=== PATIENT | male | born 1975 | race Caucasian/White ===

== ENCOUNTER 2018-01-11 14:43 | Inpatient (IN) | payer OTHER ==
[2018-01-11] MEDS ORDERED: NA CHLORIDE 0.9% 1,000 ML ONE (15:15)
[2018-01-11] MEDS ORDERED: ONDANSETRON 4 MG/2 ML VIAL ONE (15:15)
[2018-01-11 15:42] LABS: Absolute Lymphocytes (CBC) 1.7 K/uL (0.7-4.9); Absolute Monocytes 0.2 K/uL (0.1-1.3); Absolute Neutrophil 3.5 K/uL (1.8-8.0); Basophils % 1.4 % (0-1.3); Eosinophils % 0.5 % (0-4.4); Hematocrit 41.9 % (39.6-49.0); MCH 35.4 pg (27.0-35.0); MCV 102.9 fL (80-100); MPV 8.6 fL (7.6-11.3); Monocytes % 4.4 % (3.3-12.3); RBC Red Blood Cell Count 4.07 M/uL (4.33-5.43)
[2018-01-11 15:46] LABS: Protime INR 1.3
[2018-01-11 15:54] LABS: Bicarbonate 22 mEq/L (21-31); Glucose Level 112 mg/dL (65-120); Potassium 3.2 mEq/L (3.6-5.0); Sodium Level 140 mEq/L (135-145)
[2018-01-11 16:00] LABS: ALT/SGPT 54 IU/L (10-60); AST/SGOT 171 IU/L (10-42); Albumin 3.1 g/dL (3.2-5.5); Alkaline Phosphatase 96 IU/L (42-121); BUN Blood Urea Nitrogen 9 mg/dL (6-20); Bilirubin Direct 2.2 mg/dL (0-0.2); Bilirubin Total 4.5 mg/dL (0.3-1.2); Creatine Phosphokinase 613 IU/L (22-269); Protein, Total 7.4 g/dL (6.0-8.3)
[2018-01-11 16:24] LABS: Lipase 68 U/L (22-51)
[2018-01-11 16:28] LABS: Alcohol Serum/Plasma 493 mg/dl
[2018-01-11 16:45] LABS: Blood Morphology Comment NOT SEEN (NOT SEEN); Platelet Estimate DECR; Urine White Blood Cell Casts OK
--- NOTE | 2018-01-11 17:15 | RAD REPORT ---
EXAM DESCRIPTION: CT - Head Brain Wo Cont - 01/11/2018 5:04 pm CLINICAL HISTORY: CONFUSED COMPARISON: None. TECHNIQUE: Axial 5 mm thick images of the head were obtained without IV contrast. All CT scans are performed using dose optimization technique as appropriate and may include automated exposure control or mA/KV adjustment according to patient size. FINDINGS: No intracranial hemorrhage, mass, edema or shift of mid-line structures. No acute cortical based infarction. Patient does show atrophy and some chronic ischemic changes that are greater than typically seen for a patient this age. Exam has motion degradation limitation. No abnormal extra-axia l fluid collections. Ventricles are normal. Mastoid air cells and visualized portions of the paranasal sinuses are clear. No acute bony findings. IMPRESSION: No hemorrhage and no acute cortical based infarction confirmed. Patient does have some atrophy chronic ischemic change greater than typically seen for age. Decreased attenuation in the left frontal lobe is believed to be from motion. If the patient has foca l neurologic findings and is able to tolerate the examination, MR imaging could be performed.
[2018-01-11] MEDS ORDERED: LORAZEPAM 1 MG TABLET PO PRN (17:31)
[2018-01-11] MEDS ORDERED: FLUMAZENIL 0.1 MG/ML (5 mL VIAL) IV PRN (17:31)
[2018-01-11] MEDS ORDERED: LORazepam 2 MG/ML VIAL IV PRN (17:31)
[2018-01-11] MEDS ORDERED: HALOPERIDOL LACT 5 MG/ML INJ IM PRN (17:31)
--- NOTE | 2018-01-11 17:35 | ER ---
Nurse's Notes [facility] Name: Viraj Barcenas II Age: 42 yrs Sex: Male : 1975 Arrival Date: 01/11/2018 Time: 14:57 Bed 24 Private MD: Diagnosis: Alcoholic liver disease;Hypokalemia;Hypocalcemia;Alcohol abuse with intoxication, unspecified Presentation: 01/11 14:57 Presenting complaint: Patient states: EMS stated spouse called them because pt has been ed1 in bed and will not get up for over 1 month, bloody emesis also reported. Lumps on testicals that started some months ago, has not seen a doctor about that. Pt states has had chest pain for 9 days. EMS notes sclera yellowing. Triage done by Angel Huerta RN. Transition of care: patient was not received from another setting of care. Onset of symptoms is unknown. Initial Sepsis Screen: Does the patient meet any 2 criteria? No. Patient's initial sepsis screen is negative. Does the patient have a suspected source of infection? No. Patient's initial sepsis screen is negative. Care prior to arrival: Medication(s) given: Normal saline infusion, 500 mL, IV initiated. 18 GA, in the right antecubital area. 14:57 Method Of Arrival: EMS: [facility] ed1 15:38 Presenting complaint:. mb3 15:43 Presenting complaint: Patient states: Pt states feels terrrible, chest hurting at 5 on mb3 0 to 10 scale, stomach hurting at 10 on 0 to 10 scale. diffuse pain and pt does not appear to be in severe distress. 15:43 Acuity: BRIANA 3 mb3 Triage Assessment: 15:02 General: Appears uncomfortable, well groomed, Behavior is cooperative, voice slurred, ed1 acts intoxicated. Smells of alcohol, Reports fatigue for >3 days. Pain: Complains of pain in chest Pain does not radiate. EENT: Sclera/Cornea yellowing. Neuro: Level of Consciousness is obeys commands, lethargic, Oriented to person, place, time, situation. Cardiovascular: Reports chest pain, Heart tones S1 S2 present Capillary refill < 3 seconds Pulses are all present. Rhythm is regular Chest pain began over 9 days ago. Respiratory: No deficits noted. Airway is patent Respiratory effort is even, unlabored, Respiratory pattern is regular, symmetrical, Breath sounds are clear. GI: Abdomen is round noted to have ascites, denies vomiting, spouse states has been vomiting blood. : No signs and/or symptoms were reported regarding the genitourinary system. Derm: Skin is yellow. Musculoskeletal: Reports weakness in Generalized Weakness. Historical: - Allergies: 15:00 No Known Allergies; ed1 - Home Meds: 15:00 None [Active]; ed1 - PMHx: 15:00 None; ed1 - Immunization history:: Adult Immunizations unknown. - Social history:: Smoking status: Patient/guardian denies using tobacco, never smoked, Patient uses alcohol, on a daily basis. - Family history:: not pertinent. - Hospitalizations: : No recent hospitalization is reported. Screenin:10 Abuse screen: Denies threats or abuse. Nutritional screening: No deficits noted. ed1 Tuberculosis screening: Never had TB. Possible symptoms: recent bloody sputum, Risk factors: None. Fall Risk IV access (20 points). Total Garcia Fall Scale indicates No Risk (0-24 pts). Assessment: 15:10 General: see triage assessment. ed1 15:41 General: I agree with above assessment. . Pain: Complains of pain in chest, left upper mb3 quadrant and left lower quadrant Pain does not radiate. Pain currently is 5 out of 10 on a pain scale. Vital Signs: 15:08 BP 130 / 91; Pulse 86; Resp 14; Temp 97.9; Pulse Ox 95% on R/A; Weight 99.79 kg; Height ed1 5 ft. 9 in. (175.26 cm); Pain 5/10; 16:39 BP 118 / 83; Pulse 87; Resp 16; Pulse Ox 99% on 2 lpm NC; mb3 19:05 BP 119 / 77; Pulse 96; Resp 16; Pulse Ox 97% on R/A; Pain 2/10; mb3 15:08 Body Mass Index 32.49 (99.79 kg, 175.26 cm) ed1 ED Course: 14:57 Patient arrived in ED. ed1 14:57 Rosas Fox MD is Attending Physician. rn 15:00 Triage completed. ed1 15:10 Arm band placed on right wrist. ed1 15:37 Angel Huerta RN is Primary Nurse. mb3 15:44 Allergy band placed. Placed in gown. Bed in low position. Call light in reach. Side mb3 rails up X 1. quality assurance monitor body on. Pulse ox on. NIBP on. 16:30 Notified ED physician of a critical lab result(s). Calcium 6.7. ed1 16:[address] via stretcher. mb3 17:05 CT Head Brain wo Cont In Process Unspecified. EDMS 17:[address] from [address]. mb3 17:33 Arabella Polanco MD is Hospitalizing Provider. rn 19:46 No provider procedures requiring assistance completed. Patient admitted, IV remains in mb3 place. Administered Medications: 15:22 Drug: Zofran 4 mg Route: IVP; Site: right antecubital; mb3 17:07 Follow up: Response: No adverse reaction; Nausea is decreased mb3 15:22 Drug: NS 0.9% 1000 ml Route: IV; Rate: 1000 ml; Site: right antecubital; mb3 17:30 Drug: Calcium Gluconate 2 grams Route: IVPB; Infused Over: 120 mins; Site: right mb3 antecubital; Point of Care Testing: Guaiac: 16:04 Stool Guaiac: Negative; Stool Hemoccult Control: Pass; rn Outcome: 17:34 Decision to Hospitalize by Provider. rn 19:46 Admitted to Tele accompanied by tech, via stretcher, room 403, with chart, Report mb3 called to Kat Rae RN 19:46 Condition: stable 19:46 Instructed on the need for admit. 19:49 Patient left the ED. mb3 Signatures: Dispatcher [employer] EDMS Rosas Fox MD MD rn Riggs, Erika, RESIDENTIAL SUBCONTRACTOR RESIDENTIAL SUBCONTRACTOR ed1 Angel Huerta, RN RN mb3 Corrections: (The following items were deleted from the chart) 15:40 14:57 Presenting complaint: Patient states: EMS stated spouse called them because pt kendrick has been in bed and will not get up for over 1 month, bloody emesis also reported. Lumps on testicals that started some months ago, has not seen a doctor about that. Pt states has had chest pain for 9 days. EMS notes sclera yellowing. ed1 15:40 14:57 Transition of care: patient was not received from another setting of care. ed1 mb3 15:44 14:57 Acuity: BRIANA 3 ed1 mb3
--- NOTE | 2018-01-11 17:35 | EDPHYS ---
Physician Documentation [facility] Name: Viraj Barcenas II Age: 42 yrs Sex: Male : 1975 Arrival Date: 01/11/2018 Time: 14:57 Bed 24 Private MD: ED Physician Rosas Fox HPI: 01/11 16:13 This 42 yrs old Male presents to ER via EMS with complaints of vomiting blood rn vs nosebleeds. 16:13 EMS not sure if nosebleeds or vomiting blood, + alcoholic, daily drinker, patient rn denies vomiting blood or dark stool, states laying in bed for weeks, drinks daily, has nosebleeds, and generalized weakness. . Onset: The symptoms/episode began/occurred at an unknown time. Severity of symptoms: At their worst the symptoms were moderate in the emergency department the symptoms have improved. The patient has not experienced similar symptoms in the past. The patient has not recently seen a physician. Historical: - Allergies: 15:00 No Known Allergies; ed1 - Home Meds: 15:00 None [Active]; ed1 - PMHx: 15:00 None; ed1 - Immunization history:: Adult Immunizations unknown. - Social history:: Smoking status: Patient/guardian denies using tobacco, never smoked, Patient uses alcohol, on a daily basis. - Family history:: not pertinent. - Hospitalizations: : No recent hospitalization is reported. ROS: 16:13 Constitutional: Negative for fever, chills, and weight loss, Eyes: Negative for injury, rn pain, redness, and discharge, Neck: Negative for injury, pain, and swelling, Cardiovascular: Negative for chest pain, palpitations, and edema, Respiratory: Negative for shortness of breath, cough, wheezing, and pleuritic chest pain, Abdomen/GI: Negative for abdominal pain, diarrhea, and constipation, Back: Negative for injury and pain, MS/Extremity: Negative for injury and deformity, Skin: Negative for injury, rash, and discoloration, Neuro: + generalized weakness, no headache Exam: 16:13 Constitutional: This is a well developed patient, appears intoxicated, slurred speech, rn joking Head/Face: Normocephalic, atraumatic. Eyes: + scleral icterus ENT: dry MM Neck: Trachea midline, no thyromegaly or masses palpated, and no cervical lymphadenopathy. Supple, full range of motion without nuchal rigidity, or vertebral point tenderness. No Meningismus. Cardiovascular: Regular rate and rhythm with a normal S1 and S2. No gallops, murmurs, or rubs. Normal PMI, no JVD. No pulse deficits. Respiratory: Lungs have equal breath sounds bilaterally, clear to auscultation and percussion. No rales, rhonchi or wheezes noted. No increased work of breathing, no retractions or nasal flaring. Abdomen/GI: Soft, non-tender, with normal bowel sounds. No distension or tympany. No guarding or rebound. No evidence of tenderness throughout. MS/ Extremity: Pulses equal, no cyanosis. Neurovascular intact. Full, normal range of motion. Equal circumference. Neuro: Awake and alert, GCS 15, oriented to person, place, time, and situation. Cranial nerves II-XII grossly intact. Motor strength 5/5 in all extremities. Sensory grossly intact. Vital Signs: 15:08 BP 130 / 91; Pulse 86; Resp 14; Temp 97.9; Pulse Ox 95% on R/A; Weight 99.79 kg; Height ed1 5 ft. 9 in. (175.26 cm); Pain 5/10; 16:39 BP 118 / 83; Pulse 87; Resp 16; Pulse Ox 99% on 2 lpm NC; mb3 19:05 BP 119 / 77; Pulse 96; Resp 16; Pulse Ox 97% on R/A; Pain 2/10; mb3 15:08 Body Mass Index 32.49 (99.79 kg, 175.26 cm) ed1 MDM: 14:57 Patient medically screened. rn 17:32 Differential Diagnosis liver failure, cirrhosis, alcoholic hepatitis. Data reviewed: rn vital signs, nurses notes, lab test result(s), EKG, radiologic studies, CT scan, and as a result, I will admit patient. Counseling: I had a detailed discussion with the patient and/or guardian regarding: the historical points, exam findings, and any diagnostic results supporting the discharge/admit diagnosis, lab results, radiology results, the need for further work-up and treatment in the hospital. Admission orders: after a detailed discussion of the patient's condition and case, the admit orders are written by me. ED course: Admitted to Dr. Polanco for alcoholic liver disease, hypokalemia, hypocalcemia. 01/11 15:01 Order name: Basic Metabolic Panel rn 01/11 15:01 Order name: CBC with Diff; Complete Time: 16:57 rn 01/11 15:01 Order name: Creatinine for Radiology; Complete Time: 16:04 rn 01/11 15:01 Order name: Hepatic Function rn 01/11 15:01 Order name: Lipase; Complete Time: 16:41 rn 01/11 15:01 Order name: Urine Microscopic Only rn 01/11 15:01 Order name: CK; Complete Time: 16:41 rn 01/11 15:01 Order name: Hepatitis Panel 01/11 15:01 Order name: PT-INR; Complete Time: 16:04 rn 01/11 15:01 Order name: Ptt, Activated; Complete Time: 16:04 01/11 15:01 Order name: Type And Screen; Complete Time: 16:41 rn 01/11 15:01 Order name: ETOH Level; Complete Time: 16:41 01/11 15:02 Order name: Basic Metabolic Panel; Complete Time: 16:41 EDMS 01/11 15:02 Order name: Liver (Hepatic) Function; Complete Time: 16:41 EDMS 01/11 15:01 Order name: IV Saline Lock; Complete Time: 15:12 01/11 15:01 Order name: Labs collected and sent; Complete Time: 15:38 01/11 15:01 Order name: Urine Dipstick-Ancillary (obtain specimen) 01/11 16:06 Order name: CBC Smear Scan; Complete Time: 16:57 EDMS 01/11 16:16 Order name: CT Head Brain wo Cont; Complete Time: 17:18 rn 01/11 19:26 Order name: US; Complete Time: 19:26 EDMS Administered Medications: 15:22 Drug: Zofran 4 mg Route: IVP; Site: right antecubital; mb3 17:07 Follow up: Response: No adverse reaction; Nausea is decreased mb3 15:22 Drug: NS 0.9% 1000 ml Route: IV; Rate: 1000 ml; Site: right antecubital; mb3 17:30 Drug: Calcium Gluconate 2 grams Route: IVPB; Infused Over: 120 mins; Site: right mb3 antecubital; Point of Care Testing: Guaiac: 16:04 Stool Guaiac: Negative; Stool Hemoccult Control: Pass; rn Disposition: 01/11/18 17:34 Hospitalization ordered by Arabella Polanco for Inpatient Admission. Preliminary diagnosis are Alcoholic liver disease, Hypokalemia, Hypocalcemia, Alcohol abuse with intoxication, unspecified. - Bed requested for Telemetry/MedSurg (Inpatient). - Status is Inpatient Admission. mb3 - Condition is Stable. - Problem is an ongoing problem. - Symptoms have improved. UTI on Admission? No Signatures: Dispatcher [employer] EDMS YenniferJudit guevara Rosas Wren MD MD rn Riggs, Erika, PLUMBER CUB PLUMBER CUB ed1 Angel Huerta, RN RN mb3 Corrections: (The following items were deleted from the chart) 18:01 17:34 Hospitalization Ordered by Arabella Polanco MD for Inpatient Admission. Preliminary bd diagnosis is Alcoholic liver disease; Hypokalemia; Hypocalcemia; Alcohol abuse with intoxication, unspecified. Bed requested for Telemetry/MedSurg (Inpatient). Status is Inpatient Admission. Condition is Stable. Problem is an ongoing problem. Symptoms have improved. UTI on Admission? No. rn 19:49 18:01 01/11/2018 17:34 Hospitalization Ordered by Arabella Polanco MD for Inpatient mb3 Admission. Preliminary diagnosis is Alcoholic liver disease; Hypokalemia; Hypocalcemia; Alcohol abuse with intoxication, unspecified. Bed requested for Telemetry/MedSurg (Inpatient). Status is Inpatient Admission. Condition is Stable. Problem is an ongoing problem. Symptoms have improved. UTI on Admission? No. bd
[2018-01-11] MEDS: LORAZEPAM 1 MG TABLET PO SCH ×2 (18:00→22:00)
[2018-01-11] MEDS ORDERED: Calcium Gluconate 9.3 mEq (=2gm)/NS 100 mL IVPB IV ONE ×2 (18:00)
--- NOTE | 2018-01-11 19:25 | RAD REPORT ---
EXAM DESCRIPTION: US - Scrotum Testicles - 01/11/2018 6:52 pm CLINICAL HISTORY: Pain. COMPARISON: None. FINDINGS: The right testicle 3.8 x 2.9 x 1.8 cm. No intratesticular masses or evidence of testicular torsion. The left testicle 4.0 x 2.9 x 1.6 cm. No intratesticular masses or evidence of testicular torsion. Both epididymides are normal in size and appearance. Cystic lesion medial to the left epididymis is noted measuring 24 x 24 x 11 mm likely represents a sp ermatocele or epididymal cyst. IMPRESSION: No testicular mass or torsion findings. 24 mm left-sided spermatocele versus epididymal cyst.
[2018-01-11] MEDS: PANTOPRAZOLE 40MG TABLET PO SCH (22:23)
[2018-01-11] MEDS: FOLIC ACID 1 MG, MULTIVITAMINS INJ 10 ML, THIAMINE HCL 100 MG in NA CHLORIDE 0.9% 1,000 ML IV SCH (22:24)
[2018-01-12] MEDS: ONDANSETRON 4 MG/2 ML VIAL IV PRN ×4 (01:03→17:52)
[2018-01-12 01:16] VITALS: BMI 28.0
[2018-01-12] MEDS: LORAZEPAM 1 MG TABLET PO SCH ×7 (02:00→21:01)
[2018-01-12 04:52] LABS: Absolute Lymphocytes (CBC) 0.9 K/uL (0.7-4.9); Absolute Monocytes 0.2 K/uL (0.1-1.3); Absolute Neutrophil 3.7 K/uL (1.8-8.0); Eosinophils % 0.1 % (0-4.4); Hematocrit 35.6 % (39.6-49.0); Lymphocytes % 17.9 % (15.3-44.8); MCH 36.2 pg (27.0-35.0); MCV 102.9 fL (80-100); MPV 9.8 fL (7.6-11.3); RBC Red Blood Cell Count 3.46 M/uL (4.33-5.43)
--- NOTE | 2018-01-12 05:08 | HP ---
Date of Admission: 01/11/2018 Primary Care Physician: None. Consultants: Dr. West with GI. Chief Complaint: Epistaxis, generalized weakness. Code Status: Full. History Of Present Illness: The patient is a 42-year-old male with no significant past medical histo ry other than chronic alcohol dependence who drinks 6 ounces of vodka daily for several years, who wa s in his usual state of health until 1 month prior to admission when the patient had upper respirator y tract infection which was going around in his house with his and son sick with similar issues. His and son recovered. However, patient continued to have generalized weakness, fatigue, unab le to get out of bed. The patient denies any fevers, chills, cough, sputum production, however, has been having some episodes of epistaxis over the past week, however, today was worsened with 3 towels being soaked with blood which was bright red. The patient states it is worsened with any sort of act ivity including blowing his nose. Denies any trauma or any falls. The patient was brought in via EM S due to his worsening condition. When seen in the ER, the patient is clearly intoxicated, however, able to cooperate with history taking and physical examination. Upon arrival, his vital signs were s table. He was afebrile. His lab work revealed low potassium and calcium level. Platelet count was 38. H and H were 14 and 41. Alcohol level is 493. The patient was then referred for admission. Past Medical History: None. Past Surgical History: None. Allergies: TO CEPHALOSPORINS. Medications: None. Family History: Father and grandfather both of complications of liver cancer and cirrhosis due to alcohol. Social History: The patient is , has a son, is on Medicaid. Independent in his activities of daily living. Drinks 6 ounces of vodka daily. No other alcoholic drinks including beer. Does not smoke. Has smoked weed in the recent past. No illicit IV drug use. Review of Systems: An 11-point system reviewed, negative except as per HPI. Physical Examination: Vital Signs: Blood pressure 130/91, pulse 86, respirations 14, temperature 97.9, O2 95% on room air. General: Awake, alert, oriented x3. The patient is intoxicated, appears older than stated age. HEENT: Normocephalic, atraumatic. PERRLA. EOMI. Moist mucous membranes. Oropharynx is clear. Po or dentition. Conjunctiva is anicteric. Nares have some dried blood. No swollen turbinates. Neck: Supple. No JVD. Trachea midline. CV: S1, S2. Regular rate and rhythm. No murmurs. Peripheral pulses are present bilaterally. Respiratory: Clear to auscultation bilaterally. No wheezing. No stridor. No use of accessory musc les. Gastrointestinal: Abdomen is soft, nontender, nondistended. Positive bowel sounds. No guarding or rigidity. No palpable masses. : Circumcised penis, descended testicles. No masses felt. No hydrocele. Extremities: No clubbing, cyanosis, or edema. No calf tenderness. Neuro: Cranial nerves 2 through 12 intact grossly. No focal neurological deficit. Speech is normal . Strength is 5/5 bilateral upper and lower extremities. Sensation intact to light touch. Skin: No rashes. Normal skin turgor. Psych: Mood is dysphoric. Affect is congruent with mood. Insight and judgment are poor. Laboratory Data: Hep panel pending. Alcohol level 493. UA pending. Sodium 140, potassium 3.2, chl oride 105, CO2 22, BUN 9, creatinine 0.55, glucose 112, calcium 6.7, total bilirubin 4.5, direct bili colindres 2.2, AST 171, ALT 54, alkaline phosphatase 96. CK level 613. Total protein 7.4, albumin 3.1, lipase 68. INR 1.3. WBC 5.5, H and H 14.4/41.9, MCV 102.9, platelets 38, neutrophils 62%. CT scan of the head shows no hemorrhage. No acute cortical based infarction confirmed. The patient does hav e some atrophy, chronic ischemic change greater than typically seen for age. Assessment: A 42-year-old male with: 1.Epistaxis, likely secondary to alcohol-related coagulopathy. INR is elevated to 1.3, platelets ar e low at 38. We will transfuse unit of platelets. We will monitor for any further signs of bleeding . No trauma or falls. 2.Acute alcohol intoxication. Alcohol level is 493. We will place on CIWA protocol and alcohol det ox. Use Ativan p.r.n. 3.Alcohol dependence. The patient has been counseled extensively. He understands that he likely al ready has some liver cirrhosis and may end up like his father and grandfather and from complicati ons of liver cirrhosis and cancer. He plans to quit, not interested in rehab or Alcoholics Anonymous at this time. We will place on Ativan detox protocol. Monitor for withdrawals. May need to be tra nsferred to ICU depending on his CIWA scale. 4.Hypokalemia. We will replace and monitor. 5.Hypocalcemia. We will replace and monitor. 6.Elevated total bilirubin. 7.Elevated liver enzymes, likely secondary to complications of liver from alcohol. 8.Elevated lipase, likely has chronic alcoholic pancreatitis. 9.Thrombocytopenia. 10.Gastrointestinal and deep venous thrombosis prophylaxis, PPI and SCDs. Plan: Admit patient to Med-Surg, place as inpatient GI consultation. The patient also complained of testicular lumps, mass. We will obtain testicular ultrasound. May benefit from abdominal ultrasoun d to obtain liver imaging. Overall has a poor prognosis. /YOEL Voice ID: [id number]
[2018-01-12 05:21] LABS: ALT/SGPT 54 IU/L (10-60); AST/SGOT 170 IU/L (10-42); Albumin 3.3 g/dL (3.2-5.5); Alkaline Phosphatase 94 IU/L (42-121); BUN Blood Urea Nitrogen 12 mg/dL (6-20); Bicarbonate 25 mEq/L (21-31); Creatine Phosphokinase 692 IU/L (22-269); Glucose Level 137 mg/dL (65-120); Magnesium 1.7 mg/dL (1.8-2.5); Phosphorus 2.4 mg/dL (2.5-4.3); Potassium 3.9 mEq/L (3.6-5.0); Protein, Total 7.7 g/dL (6.0-8.3); Sodium Level 139 mEq/L (135-145)
[2018-01-12 05:24] LABS: Bilirubin Total 5.7 mg/dL (0.3-1.2)
[2018-01-12] MEDS ORDERED: POTASSIUM 25 MEQ EFFERV TAB PO ONE (06:21)
[2018-01-12] MEDS ORDERED: MAGNESIUM SULFATE 1 gm IVPB 1 GM/100 ML BAG IV ONE (06:22)
[2018-01-12] MEDS: PANTOPRAZOLE 40MG TABLET PO SCH ×2 (09:09→21:01)
[2018-01-12] MEDS: FOLIC ACID 1 MG, MULTIVITAMINS INJ 10 ML, THIAMINE HCL 100 MG in NA CHLORIDE 0.9% 1,000 ML IV SCH (09:10)
[2018-01-12 09:53] LABS: Urine Bacteria <20 /HPF (NONE SEEN); Urine Culture Reflex Order NOT NEEDED; Urine Mucus 1+ /HPF (NONE SEEN); Urine RBC 20-50 /HPF (NONE SEEN)
--- NOTE | 2018-01-12 14:25 | PN ---
Date of Progress Note: 01/12/2018 Subjective: The patient is seen and examined. Chart reviewed and case discussed with RN. Family at the bedside. Treatment plan explained. All questions answered. The patient denies any acute delir ium tremens. Having some withdrawal signs. Review of Systems: Negative except as above. Medications: Reviewed. Physical Examination: Vital Signs: Temperature 98.8, T-max 100.6, heart rate 97, blood pressure 116/71, respirations 18, O 2 91% on room air. General: Awake, alert, oriented x3. No acute distress. Appears older than stated age. CV: S1, S2. No murmurs. Regular rate and rhythm. Peripheral pulses present. Respiratory: Moving air well bilaterally. No wheezing. Gastrointestinal: Abdomen is soft, nontender, nondistended. Positive bowel sounds. Extremities: No clubbing, cyanosis, or edema. Neurologic: Nonfocal. Laboratory Data: Sodium 139, potassium 3.9, chloride 103, CO2 25, BUN 12, creatinine 0.56, glucose 1 37, calcium 7.9, phosphorus 2.4, magnesium 1.7, total bilirubin 5.7. AST 178, ALT 54. CK 692. WBC 4.8, H and H 12.5 and 35.6, platelets 32, MCV 102.9, neutrophils 76%. Hepatitis panel pending. Ultr asound of the scrotum shows no testicular mass or torsion findings, 24 mm left-sided spermatocele stefani poncho epididymal cyst. Assessment And Plan: A 42-year-old male with: 1.Acute alcohol intoxication. Alcohol level was 493. Currently on detox protocol with Ativan, and monitor with CIWA protocol. Social work to provide the patient with rehab and AA information. I hav e talked to the patient and the patient himself is interested in quitting at this time. 2.Epistaxis secondary to above, resolved. 3.Thrombocytopenia, likely related to alcoholic liver cirrhosis. We will obtain imaging to confirm. We will continue to monitor. No active bleeding at this time. 4.Alcohol dependence. The patient was counseled. Continue with detox. 5.Hypokalemia, replaced. We will continue to monitor. 6.Hypocalcemia, replaced, improving. 7.Left spermatocele. We will monitor. 8.Elevated liver enzymes and total bilirubin, likely related to alcoholic liver disease. 9.Chronic alcoholic pancreatitis. 10.Gastrointestinal and deep venous thrombosis prophylaxis, PPI and SCDs. Plan: Obtain liver imaging to assess level of cirrhosis. Continue with detox. Follow up with GI re commendations. /YOEL Voice ID: [id number] Report ID: [id number]
[2018-01-12] MEDS: ACETAMINOPHEN 500 MG TAB PO PRN (21:01)
--- NOTE | 2018-01-12 21:31 | CON ---
Reason For Consultation: Alcoholic liver disease. History Of Present Illness: Mr. Barcenas is a 42-year-old gentleman, who comes to the hospital once ag ain with epistaxis and generalized weakness. However at this time, he is totally confused, cannot gi ve any history. He is jittery and he is restless. He appears to be undergoing an alcohol withdrawal . He has a heavy history of alcohol withdrawal of hard liquor. He apparently drank vodka at this ti me. From the nurses I cannot get any hematemesis, melena, hematochezia. The patient does not admit or refused to say anything. Past Medical History: As elaborated above. Multiple admissions due to alcohol intoxication. Past Surgical History: Unknown. Family History: Unknown. Social History: Other than above, unknown. Psych History: Unknown. Allergies: REVIEWED IN THE CHART. Medications: Reviewed in the chart. Review of Systems: Impossible to obtain due to patient's condition. Physical Examination: General: Young male at this time appears to be jittery; however, no in acute distress. Hemodynamic respiratory profile within normal range. HEENT: Atraumatic, normocephalic. Some amount of icterus. Oropharyngeally he does not cooperate. Neck: Supple. No lymphadenopathy. Chest good air exchange. However does not cooperate. Cardiac: S1, S2 is accentuated. Abdomen: Soft, nontender, nondistended. No tenderness appears to be there. Bowel sounds are presen t. Extremities: Upper and lower extremities are normal, symmetrical. Neurologic: He is jittery; however, does not cooperate to any other examination. Diagnostic Data: Hemoglobin and hematocrit are 14 and 41, platelet count is low. Chemistry profile shows bilirubin is 4.5. AST is predominantly elevated. CK is elevated. Albumin 3.1. Impression, Plan, And Recommendation: Mr. Barcenas is a 42-year-old gentleman with alcoholic dependenc e and alcohol withdrawal at this time. He probably has acute alcoholic hepatitis. Whether he has he patic encephalopathy or not is impossible to obtain at this time. He is to continue with conservative seizure precaution, alcohol withdrawal preparation. His treatmen t will be: 1.Giving up alcohol. 2.Giving up alcohol. 3.Giving up alcohol. Then comes rest of the management. However, patient is not in a state of mind where we can discuss with him regarding his alcohol withdr awal and other management. This should be discussed in appropriate time. GEORGETTE/MODL Voice ID: [id number] Report ID: [id number]
[2018-01-13] MEDS: LORAZEPAM 1 MG TABLET PO SCH ×3 (01:39→10:24)
[2018-01-13 03:14] LABS: HBsAG Nonreactive (Nonreactive); Hepatitis A IgM Antibody Nonreactive
[2018-01-13] MEDS: ONDANSETRON 4 MG/2 ML VIAL IV PRN ×2 (05:49→10:24)
[2018-01-13 06:24] LABS: Absolute Monocytes 0.3 K/uL (0.1-1.3); Absolute Neutrophil 2.5 K/uL (1.8-8.0); Basophils % 1.3 % (0-1.3); Eosinophils % 1.2 % (0-4.4); Hematocrit 34.5 % (39.6-49.0); Lymphocytes % 25.6 % (15.3-44.8); MCH 36.6 pg (27.0-35.0); MCV 102.8 fL (80-100); MPV 8.5 fL (7.6-11.3); Monocytes % 7.1 % (3.3-12.3); RBC Red Blood Cell Count 3.35 M/uL (4.33-5.43)
[2018-01-13 07:02] LABS: ALT/SGPT 54 IU/L (10-60); AST/SGOT 186 IU/L (10-42); Alkaline Phosphatase 91 IU/L (42-121); BUN Blood Urea Nitrogen 8 mg/dL (6-20); Bicarbonate 24 mEq/L (21-31); Creatine Phosphokinase 965 IU/L (22-269); Glucose Level 87 mg/dL (65-120); Magnesium 1.5 mg/dL (1.8-2.5); Phosphorus 2.2 mg/dL (2.5-4.3); Potassium 3.7 mEq/L (3.6-5.0); Sodium Level 134 mEq/L (135-145)
[2018-01-13] MEDS ORDERED: MAGNESIUM SULFATE 1 gm IVPB 1 GM/100 ML BAG IV ONE (07:16)
[2018-01-13] MEDS ORDERED: POTASSIUM 25 MEQ EFFERV TAB PO ONE (07:46)
[2018-01-13] MEDS ORDERED: Magnesium Sulfate 2gm IVPB 2 G/50 ML BAG IV ONE (07:46)
[2018-01-13] MEDS: FOLIC ACID 1 MG, MULTIVITAMINS INJ 10 ML, THIAMINE HCL 100 MG in NA CHLORIDE 0.9% 1,000 ML IV SCH (08:11)
[2018-01-13] MEDS: PANTOPRAZOLE 40MG TABLET PO SCH ×2 (08:11→21:26)
[2018-01-13] MEDS: NA CHLORIDE 0.9% 1,000 ML IV SCH ×2 (08:22→15:39)
--- NOTE | 2018-01-13 09:20 | RAD REPORT ---
EXAM DESCRIPTION: US - Abdomen Exam Complete - 01/13/2018 7:46 am CLINICAL HISTORY: Abdominal pain. COMPARISON: None. FINDINGS: Diffuse fatty liver is seen. Mild nodular contour is present to the liver suggesting under lying cirrhosis. No focal liver lesions or intrahepatic biliary dilatation is seen. Gallbladder sludge is present. Common bile duct is normal in caliber measuring 5 millimeters. Both kidneys are normal in size, shape and echotexture. Small calculi likely present in both kidneys. No hydronephrosis. The spleen is mildly enlarged measuring 14 cm. The pancreas and aorta are obscured by bowel gas. IMPRESSION: Diffuse fatty liver is seen with nodular liver contour suggesting mild cirrhosis. The de gree of fatty infiltration limits sonographic penetrance. Gallbladder sludge. Bilateral nephrolithiasis without hydronephrosis. Mild splenomegaly.
[2018-01-13 12:09] LABS: MPV 10.1 fL (7.6-11.3)
[2018-01-13] MEDS: PROMETHAZINE 25 MG/ML VIAL IV PRN ×2 (12:57→21:26)
[2018-01-13 13:02] LABS: Platelet Estimate DECR
[2018-01-13] MEDS: LORazepam 2 MG/ML VIAL IV SCH ×3 (14:03→21:25)
--- NOTE | 2018-01-13 17:00 | PN ---
Date of Progress Note: 01/13/2018 Subjective: The patient is seen and examined. Chart reviewed and case discussed with RN and Dr. Jaxson dunham. The patient is still very somnolent. Had some episodes of nausea and vomiting overnight. a t the bedside. No active bleeding. Review of Systems: Negative except as above. Medications: Reviewed. Physical Examination: Vital Signs: Temperature 99.2, T-max was 100.9 at 8 p.m. yesterday, heart rate 82, blood pressure 12 9/80, respirations 16, O2 94% on room air. General: Awake, alert, arousable somewhat confused and disoriented. Appears older than stated age. CV: S1, S2. No murmurs. Regular rate and rhythm. Peripheral pulses present. Respiratory: Moving air well bilaterally. No wheezing. Gastrointestinal: Abdomen is soft, nontender, nondistended. Positive bowel sounds. Extremities: No clubbing, cyanosis, edema. Neuro: Nonfocal. HEENT: Normocephalic, atraumatic. PERRLA. EOMI. Moist mucous membranes. Conjunctiva has icterus. Psych: Mood is dysphoric. Affect is congruent with mood. Insight and judgment are poor. Laboratory Data: WBC 3.9, H and H 12.3 and 34.5, MCV 102.8, platelets 21, neutrophils 64%. Sodium 1 34, potassium 3.7, chloride 99, CO2 24, BUN 8, creatinine 0.61, glucose 87, calcium 8. Total bilirub in 7, AST 186, ALT 54, CK 965. Abdominal ultrasound shows spleen mildly enlarged at 14 cm. Diffuse fatty liver is seen with nodular liver contour suggesting mild cirrhosis. Degree of fatty infiltrati on limits sonographic penetrates. Gallbladder sludge, bilateral nephrolithiasis without hydronephros is. Mild splenomegaly. Assessment And Plan: A 42-year-old male with: 1.Acute alcoholic intoxication. Continue detox protocol with Ativan. Monitor CIWA protocol. The p atient will need to go to rehab or alcoholics anonymous upon discharge. 2.Epistaxis, resolved. 3.Acute alcoholic hepatitis. Appreciate GI input. Counseled against drinking. 4.Thrombocytopenia. The patient does have splenomegaly, likely related to alcoholic liver cirrhosis seen on abdominal ultrasound. No active bleeding at this time. We will repeat platelet levels. I spoke with Dr. Dorman with Hematology. She recommends outpatient followup. No indication for platelet transfusion at this time. 5.Alcohol dependence, counseled. Continue detox. 6.Hyponatremia. We will continue to monitor. 7.Rhabdomyolysis, acute, nontraumatic. CK level trending up. We will adjust IV fluids. 8.Hypocalcemia, improved. 9.Hypokalemia, replaced. We will continue to monitor. 10.Left spermatocele. 11.Chronic alcoholic hepatitis. 12.Gastrointestinal and deep venous thrombosis prophylaxis with PPI and SCDs. No chemical anticoagu lation due to low platelets. SA/MODL Voice ID: [id number] Report ID: [id number]
[2018-01-13] MEDS ORDERED: LORAZEPAM 1 MG TABLET PO SCH (17:35)
[2018-01-13 19:37] LABS: Urine Appearance CLEAR; Urine Blood NEGATIVE (NEG); Urine Color DK YELLOW; Urine Glucose NEGATIVE (NEG); Urine Protein NEGATIVE (NEG); Urine Specific Gravity 1.015 (1.005-1.030); Urine Urobilinogen >=8.0 mg/dL (0.2-1.0); Urine pH 7.5 (5.0-7.0)
[2018-01-13 19:42] LABS: Urine Bilirubin 1+ (NEG)
[2018-01-13 19:55] LABS: Urine Bacteria <20 /HPF (NONE SEEN); Urine RBC <5 /HPF (NONE SEEN)
[2018-01-13 19:57] LABS: Urine Culture Reflex Order NOT NEEDED
[2018-01-14] MEDS: LORazepam 2 MG/ML VIAL IV SCH ×4 (01:36→21:26)
[2018-01-14] MEDS: PROMETHAZINE 25 MG/ML VIAL IV PRN (05:07)
[2018-01-14 05:56] LABS: Absolute Lymphocytes (CBC) 0.7 K/uL (0.7-4.9); Absolute Monocytes 0.3 K/uL (0.1-1.3); Eosinophils % 1.7 % (0-4.4); Hematocrit 36.4 % (39.6-49.0); Lymphocytes % 16.3 % (15.3-44.8); MCH 36.1 pg (27.0-35.0); MCV 104.9 fL (80-100); MPV 8.5 fL (7.6-11.3); Monocytes % 8.2 % (3.3-12.3); RBC Red Blood Cell Count 3.47 M/uL (4.33-5.43)
[2018-01-14 06:49] LABS: ALT/SGPT 58 IU/L (10-60); AST/SGOT 179 IU/L (10-42); Albumin 3.2 g/dL (3.2-5.5); Alkaline Phosphatase 98 IU/L (42-121); BUN Blood Urea Nitrogen 7 mg/dL (6-20); Bicarbonate 23 mEq/L (21-31); Creatine Phosphokinase 755 IU/L (22-269); Folic Acid, (Folate) 11.9 ng/ml (>5.21); Glucose Level 116 mg/dL (65-120); Magnesium 1.7 mg/dL (1.8-2.5); Potassium 3.2 mEq/L (3.6-5.0); Protein, Total 7.6 g/dL (6.0-8.3); Sodium Level 132 mEq/L (135-145)
[2018-01-14] MEDS ORDERED: MAGNESIUM SULFATE 1 gm IVPB 1 GM/100 ML BAG IV ONE (06:51)
[2018-01-14 06:53] LABS: Bilirubin Total 9.1 mg/dL (0.3-1.2)
[2018-01-14] MEDS ORDERED: POTASSIUM 25 MEQ EFFERV TAB PO ONE ×2 (06:54→15:44)
[2018-01-14] MEDS: ONDANSETRON 4 MG/2 ML VIAL IV PRN (07:16)
[2018-01-14] MEDS: LORazepam 2 MG/ML VIAL IV PRN (07:17)
[2018-01-14] MEDS: NA CHLORIDE 0.9% 1,000 ML IV SCH ×3 (08:00→17:27)
[2018-01-14] MEDS: FOLIC ACID 1 MG, MULTIVITAMINS INJ 10 ML, THIAMINE HCL 100 MG in NA CHLORIDE 0.9% 1,000 ML IV SCH (08:46)
[2018-01-14] MEDS: PANTOPRAZOLE 40MG TABLET PO SCH ×2 (08:47→21:00)
[2018-01-14] MEDS ORDERED: LORazepam 2 MG/ML VIAL IV SCH ×2 (10:00→13:00)
--- NOTE | 2018-01-14 13:31 | PN ---
Date of Progress Note: 01/14/2018 Subjective: The patient seen and examined, chart reviewed, and case discussed with RN. The patient had some nausea, vomiting yesterday that has improved. The patient is somewhat confused and hallucin ating per . No active bleeding at this time. Review of Systems: Negative except as above. Medications: Reviewed. Physical Examination: Vital Signs: Temperature 99.1, heart rate 105, blood pressure 129/93, respirations 16, and O2 97% on room air. General: Awake, alert, oriented x3. Some mild distress, appears older than stated age, somewhat ill -appearing male. CV: S1, S2. Sinus tachycardia. No murmurs. Peripheral pulses present. Respiratory: Moving air well bilaterally. No wheezing. Gastrointestinal: Abdomen is soft, nontender, nondistended. Positive bowel sounds. Extremities: No clubbing, cyanosis, or edema. Neurologic: Nonfocal. Laboratory Data: Sodium 132, potassium 3.2, chloride 97, CO2 23, BUN 7, creatinine 0.53, glucose 116 , calcium 8.2, magnesium 1.7, total bilirubin 9.1, AST 179, ALT 58, alkaline phosphatase 98, CK 755, and albumin 3.2. Vitamin B12 level is 1140, folate is 11.9. WBC 4.2, H and H 12.5, 36.4, and platel ets 23. Hepatitis C antibody nonreactive. Hepatitis B nonreactive as well as hepatitis A. Abdomina l ultrasound shows diffuse fatty liver with nodular liver contour suggesting mild cirrhosis. Degree of fatty infiltration limits sonograhic penetrance, gallbladder sludge, bilateral nephrolithiasis wit hout hydronephrosis. Mild splenomegaly. Assessment: A 42-year-old male with; 1.Acute alcohol intoxication. Continue detox protocol with AtJERED duenas protocol. Recommend rehab or AA meetings upon discharge. 2.Epistaxis, resolved. 3.Acute alcoholic hepatitis. Total bilirubin is elevated to 9. Abdominal ultrasound does not show any ductal dilatation. We will continue to monitor. Appreciate GI input. 4.Thrombocytopenia, likely related to alcoholic liver cirrhosis and splenomegaly. 5.Alcoholic liver cirrhosis, counseled against drinking. 6.Alcohol dependence, counseled to continue detox. 7.Hyponatremia. He will continue IV fluids and monitor. 8.Rhabdomyolysis, nontraumatic. CK level improving. We will continue with IV fluids. 9.Hypocalcemia, improved. 10.Hypomagnesemia. We will replace and monitor. 11.Hypokalemia. We will replace and monitor. 12.Left spermatocele. 13.Chronic alcoholic hepatitis. 14.Gastrointestinal and deep venous thrombosis prophylaxis with PPI and SCDs. No chemical anticoagu lation due to his low platelets. Plan: Continue detox. The patient will be switched over to 1 mg Ativan IV q.8 hours for 3 doses prakash brent. /YOEL Voice ID: [id number] Report ID: [id number]
[2018-01-15] MEDS: LORazepam 2 MG/ML VIAL IV PRN (02:54)
[2018-01-15] MEDS: NA CHLORIDE 0.9% 1,000 ML IV SCH ×4 (02:55→21:19)
[2018-01-15] MEDS: ONDANSETRON 4 MG/2 ML VIAL IV PRN (02:55)
[2018-01-15 06:25] LABS: Bicarbonate 26 mEq/L (21-31); Glucose Level 110 mg/dL (65-120); Magnesium 1.9 mg/dL (1.8-2.5); Potassium 3.2 mEq/L (3.6-5.0); Sodium Level 133 mEq/L (135-145)
[2018-01-15 06:26] LABS: BUN Blood Urea Nitrogen < 5 mg/dL (6-20)
[2018-01-15] MEDS: KCL 20 MEQ/100 mL IVPB 20 MEQ/100 ML BAG IV SCH ×2 (06:48→08:53)
[2018-01-15] MEDS: FOLIC ACID 1 MG, MULTIVITAMINS INJ 10 ML, THIAMINE HCL 100 MG in NA CHLORIDE 0.9% 1,000 ML IV SCH (08:53)
[2018-01-15] MEDS: PANTOPRAZOLE 40MG TABLET PO SCH ×2 (08:53→21:20)
[2018-01-15] MEDS: chlordiazePOXIDE HCl 25 MG CAP PO SCH ×2 (09:21→21:20)
[2018-01-15] MEDS ORDERED: ENSURE HIGH PROTEIN 237 ML CAN PO PRN (13:39)
--- NOTE | 2018-01-15 13:43 | PN ---
Date of Progress Note: 01/15/2018 Subjective: The patient is seen and examined. Chart reviewed and case discussed with RN. The patie nt had a better night last night. He did receive Ativan twice p.r.n. Review of Systems: Negative except as above. Medications: Reviewed. Physical Examination: Vital signs: Temperature 98.9, heart rate 101, blood pressure 142/95, pulse is 20, O2 saturation is 96% on room air General: Awake, alert, oriented x3. No acute distress. Somnolent, appears older than stated age. CV: S1, S2. Sinus tachycardia. No murmurs. Peripheral pulses present. Respiratory: Clear to auscultation bilaterally. No wheezing. No stridor. No use of accessory musc les. Gastrointestinal: Abdomen is soft, nontender, nondistended. Positive bowel sounds. Extremities: No clubbing, cyanosis, or edema. Neurologic: Nonfocal. Laboratory Data: Sodium 133, potassium 3.2, chloride 100, CO2 26, creatinine 0.54, glucose 110, calc ium 8.4, magnesium 1.9. WBC 4.2, H and H 12.5 and 36.4, platelets 23. Assessment And Plan: A 42-year-old male with 1.Acute alcohol intoxication. We will continue detox protocol with Ativan, will be switched to 1 mg Ativan IV every 12 hours. WA protocol. The patient will need rehab or go to AA meetings after di scharemir. 2.Epistaxis, resolved. 3.Acute alcoholic hepatitis. Appreciate GI input. 4.Thrombocytopenia related to alcoholic liver cirrhosis and splenomegaly. 5.Alcoholic liver cirrhosis. 6.Alcohol dependence counseled. 7.Hyponatremia. Monitor. Continue IV fluids. 8.Rhabdomyolysis, nontraumatic. We will monitor CK level trending down. Continue IV fluids. 9.Hypocalcemia, replaced. Continue to monitor. 10.Hypokalemia. We will replace and monitor. 11.Left spermatocele. 12.Chronic alcoholic hepatitis. 13.Gastrointestinal and deep venous thrombosis prophylaxis with PPI and SCDs. No chemical anticoagu lation due to low platelets. SA/MODL Voice ID: [id number] Report ID: [id number]
[2018-01-15] MEDS ORDERED: POTASSIUM 25 MEQ EFFERV TAB PO ONE (14:00)
[2018-01-15] MEDS ORDERED: LORazepam 2 MG/ML VIAL IV SCH (17:00)
[2018-01-16] MEDS: NA CHLORIDE 0.9% 1,000 ML IV SCH ×6 (03:29→22:00)
[2018-01-16] MEDS: ACETAMINOPHEN 500 MG TAB PO PRN ×2 (03:32→08:25)
[2018-01-16 05:49] LABS: Absolute Lymphocytes (CBC) 1.1 K/uL (0.7-4.9); Absolute Monocytes 0.5 K/uL (0.1-1.3); Absolute Neutrophil 3.2 K/uL (1.8-8.0); Basophils % 1.3 % (0-1.3); Eosinophils % 2.8 % (0-4.4); Hematocrit 38.6 % (39.6-49.0); Lymphocytes % 21.4 % (15.3-44.8); MCH 36.1 pg (27.0-35.0); MCV 105.8 fL (80-100); MPV 9.7 fL (7.6-11.3); Monocytes % 10.3 % (3.3-12.3); RBC Red Blood Cell Count 3.65 M/uL (4.33-5.43)
[2018-01-16 06:44] LABS: ALT/SGPT 63 IU/L (10-60); AST/SGOT 128 IU/L (10-42); Albumin 3.2 g/dL (3.2-5.5); Alkaline Phosphatase 125 IU/L (42-121); BUN Blood Urea Nitrogen 5 mg/dL (6-20); Bicarbonate 25 mEq/L (21-31); Creatine Phosphokinase 288 IU/L (22-269); Glucose Level 144 mg/dL (65-120); Potassium 3.6 mEq/L (3.6-5.0); Protein, Total 7.8 g/dL (6.0-8.3); Sodium Level 132 mEq/L (135-145)
[2018-01-16 06:46] LABS: Bilirubin Total 6.1 mg/dL (0.3-1.2)
[2018-01-16] MEDS ORDERED: POTASSIUM 25 MEQ EFFERV TAB PO ONE (06:55)
[2018-01-16 08:05] LABS: Blood Morphology Comment NOTED (NOT SEEN); Macrocytosis SLIGHT; Platelet Estimate DECR
[2018-01-16 08:06] LABS: Polychromasia SLIGHT
[2018-01-16] MEDS: ONDANSETRON 4 MG/2 ML VIAL IV PRN ×2 (08:25→17:34)
[2018-01-16] MEDS: PANTOPRAZOLE 40MG TABLET PO SCH ×2 (08:25→20:59)
[2018-01-16] MEDS: chlordiazePOXIDE HCl 25 MG CAP PO SCH (08:26)
[2018-01-16] MEDS: FOLIC ACID 1 MG, MULTIVITAMINS INJ 10 ML, THIAMINE HCL 100 MG in NA CHLORIDE 0.9% 1,000 ML IV SCH (08:27)
--- NOTE | 2018-01-16 13:23 | PN ---
Date of Progress Note: 01/16/2018 Subjective: The patient seen and examined. Chart reviewed and case discussed with RN. The patient much more awake and alert today, not having any nausea or vomiting. Switched over to p.o. Librium ye day. Not requiring any p.r.n. Ativan. Review of Systems: Negative except as above. Medications: Reviewed. Physical Examination: Vital Signs: Temperature 98.6, heart rate 106, blood pressure 127/94, respirations 18, O2 97% on mony m air. General: Awake, alert, oriented x3. Appears older than stated age. CV: S1, S2. No murmurs. Regular rate and rhythm. Peripheral pulses present. Respiratory: Moving air well bilaterally. Gastrointestinal: Abdomen is soft, nontender, nondistended. Positive bowel sounds. Extremities: No clubbing, cyanosis, edema. Neurologic: Nonfocal. Laboratory Data: Sodium 132, potassium 3.6, chloride 101, CO2 25, creatinine 0.57, BUN 5, glucose 14 4, calcium 8.5, total bilirubin 6.1, AST 128, ALT 63, alkaline phosphatase 125. CK 288. WBC 4.9, H and H 13.2, 38.6, MCV 105.8, platelets 59. Hepatitis panel nonreactive. Assessment And Plan: A 42-year-old male with: 1.Acute alcohol intoxication. The patient has been switched over to p.o. Librium. We will decrease Librium dose to 25 daily in a.m. Continue Ativan p.r.n. Monitor using CIWA protocol. I spoke with the patient at length today. He is willing to quit alcohol. He understands his risk of mortality i s high if he continues to drink with his mild cirrhosis already present. He does not have any specif ic plan; however, he is going to stay off alcohol. 2.Epistaxis, resolved. 3.Acute alcoholic hepatitis, stable. Appreciate GI input. 4.Thrombocytopenia related to alcoholic liver cirrhosis, splenomegaly. The patient will need to fol low up with Dr. Dorman as an outpatient for further evaluation. 5.Alcoholic liver cirrhosis. 6.Alcohol dependence. 7.Hyponatremia. Continue to monitor. Continue IV fluids. 8.Rhabdomyolysis, nontraumatic. CK level trending down. Continue IV fluids. 9.Hypocalcemia, corrected. 10.Spermatocele. 11.Chronic alcoholic hepatitis. 12.GI and DVT prophylaxis with PPI and SCDs. No chemical anticoagulation due to thrombocytopenia. Likely discharge in a.m. /YOEL Voice ID: [id number] Report ID: [id number]
[2018-01-16] MEDS: LORazepam 2 MG/ML VIAL IV PRN (18:18)
--- NOTE | 2018-01-16 21:51 | P.PN ---
Subjective Date of Service: 01/16/18 Physical Examination - Vital Signs Temperature: 98.8 F Blood Pressure: 138/74 Pulse: 95 Respirations: 18 Pulse Ox (%): 94 Assessment & Plan - Problems (Diagnosis) (1) Alcohol intoxication Current Visit: Yes Status: Acute Qualifiers: Complication of substance-induced condition: with unspecified complication Qualified Code(s): F10.929 - Alcohol use, unspecified with intoxication, unspecified (2) Splenomegaly Current Visit: Yes Status: Chronic (3) Thrombocytopenia Current Visit: Yes Status: Acute (4) Epistaxis Current Visit: Yes Status: Acute (5) Acute alcoholic hepatitis Current Visit: Yes Status: Acute (6) Hyponatremia Current Visit: Yes Status: Acute (7) Rhabdomyolysis Current Visit: Yes Status: Acute Qualifiers: Rhabdomyolysis type: non-traumatic Qualified Code(s): M62.82 - Rhabdomyolysis (8) Alcoholic cirrhosis of liver Onset Date: 01/12/18 Current Visit: Yes Status: Chronic Qualifiers: Ascites presence: unspecified Qualified Code(s): K70.30 - Alcoholic cirrhosis of liver without ascites (9) Elevated liver enzymes Current Visit: Yes Status: Acute (10) Hypokalemia Onset Date: 01/12/18 Current Visit: Yes Status: Acute
[2018-01-17] MEDS: NA CHLORIDE 0.9% 1,000 ML IV SCH (04:20)
[2018-01-17 04:52] VITALS: O2SAT 98
[2018-01-17 06:11] LABS: Absolute Monocytes 0.7 K/uL (0.1-1.3); Absolute Neutrophil 2.8 K/uL (1.8-8.0); Eosinophils % 2.7 % (0-4.4); Hematocrit 39.3 % (39.6-49.0); Lymphocytes % 22.3 % (15.3-44.8); MCH 36.4 pg (27.0-35.0); MCV 106.1 fL (80-100); MPV 9.3 fL (7.6-11.3); Monocytes % 14.1 % (3.3-12.3); RBC Red Blood Cell Count 3.71 M/uL (4.33-5.43)
[2018-01-17 06:50] LABS: ALT/SGPT 67 IU/L (10-60); AST/SGOT 120 IU/L (10-42); Alkaline Phosphatase 125 IU/L (42-121); Bicarbonate 28 mEq/L (21-31); Creatine Phosphokinase 226 IU/L (22-269); Glucose Level 114 mg/dL (65-120); Potassium 3.8 mEq/L (3.6-5.0); Protein, Total 7.9 g/dL (6.0-8.3); Sodium Level 136 mEq/L (135-145)
[2018-01-17 07:00] LABS: BUN Blood Urea Nitrogen < 5 mg/dL (6-20)
[2018-01-17 07:01] LABS: Bilirubin Total 6.4 mg/dL (0.3-1.2)
[2018-01-17] MEDS ORDERED: POTASSIUM 25 MEQ EFFERV TAB PO ONE (07:21)
[2018-01-17] MEDS: PANTOPRAZOLE 40MG TABLET PO SCH (08:33)
[2018-01-17] MEDS ORDERED: chlordiazePOXIDE HCl 25 MG CAP PO SCH (09:00)
[2018-01-17 12:06] VITALS: BP 132/86; TEMP 99.4
--- NOTE | 2018-01-17 12:11 | P.DS ---
Admission Date: 01/11/18 Discharge Date: 01/17/18 Primary Care Provider: Dr. Easley Disposition: ROUTINE DISCHARGE Discharge Condition: GOOD Consultations: GI-Dr. West Procedures: Scrotal ultrasound: FINDINGS: The right testicle 3.8 x 2.9 x 1.8 cm. No intratesticular masses or evidence of testicular torsion. The left testicle 4.0 x 2.9 x 1.6 cm. No intratesticular masses or evidence of testicular torsion. Both epididymides are normal in size and appearance. Cystic lesion medial to the left epididymis is noted measuring 24 x 24 x 11 mm likely represents a spermatocele or epididymal cyst. IMPRESSION: No testicular mass or torsion findings. 24 mm left-sided spermatocele versus epididymal cyst. Abdominal ultrasound: IMPRESSION: Diffuse fatty liver is seen with nodular liver contour suggesting mild cirrhosis. The degree of fatty infiltration limits sonographic penetrance. Gallbladder sludge. Bilateral nephrolithiasis without hydronephrosis. Mild splenomegaly. - Problems (1) Alcohol intoxication Current Visit: Yes Status: Acute Qualifiers: Complication of substance-induced condition: with unspecified complication Qualified Code(s): F10.929 - Alcohol use, unspecified with intoxication, unspecified (2) Splenomegaly Current Visit: Yes Status: Chronic (3) Thrombocytopenia Current Visit: Yes Status: Acute (4) Epistaxis Current Visit: Yes Status: Acute (5) Acute alcoholic hepatitis Current Visit: Yes Status: Acute (6) Hyponatremia Current Visit: Yes Status: Acute (7) Rhabdomyolysis Current Visit: Yes Status: Acute Qualifiers: Rhabdomyolysis type: non-traumatic Qualified Code(s): M62.82 - Rhabdomyolysis (8) Alcoholic cirrhosis of liver Onset Date: 01/12/18 Current Visit: Yes Status: Chronic Qualifiers: Ascites presence: unspecified Qualified Code(s): K70.30 - Alcoholic cirrhosis of liver without ascites (9) Elevated liver enzymes Current Visit: Yes Status: Acute (10) Hypokalemia Onset Date: 01/12/18 Current Visit: Yes Status: Acute Brief History of Present Illness: 42-year-old male presented emergency room with epistaxis. Patient also found to have alcoholic intoxication with acute alcoholic hepatitis. Patient with alcoholic cirrhosis and splenomegaly. Patient was admitted for treatment. Hospital Course: Patient found to have acute alcohol abuse with acute alcoholic hepatitis with cirrhosis of the liver. Patient was monitored and given IV fluids. No intervention was needed. Patient was evaluated by GI. Recommendation on alcohol cessation. At discharge patient will be given and limited supply of Librium to be tapered off. Recommendation to continue alcohol cessation. The patient can follow up with GI as an outpatient for treatment of his alcoholic cirrhosis. Patient will continue with thiamine 100 mg daily, folic acid 1 mg daily, and multi vitamin daily. Recommendation is for the patient to continue the possibility of AA therapy. Patient likely has GERD. Patient will continue with Prilosec 20 mg 1 pill twice daily. Patient found to have splenomegaly with thrombocytopenia. Case discussed with hematology. This is likely related to his liver cirrhosis. This has improved. This can be monitored as an outpatient. Recommendation is to recheck CBC in 1 -2 weeks to monitor his progress. Patient had scrotal ultrasound. Patient has left-sided spermatocele. This can be further addressed as an outpatient with Urology Vital Signs/Physical Exam: Temp Pulse Resp BP Pulse Ox 99.4 F 104 H 16 132/86 96 01/17/18 12:00 01/17/18 12:00 01/17/18 12:00 01/17/18 12:00 01/17/18 12:00 General: Alert, In no apparent distress, Oriented x3, Cooperative HEENT: Atraumatic Neck: Supple Respiratory: Clear to auscultation bilaterally, Normal air movement Cardiovascular: Normal pulses, Regular rate/rhythm Gastrointestinal: Normal bowel sounds, Soft and benign, Non-distended, No masses , No rebound, No guarding Musculoskeletal: No erythema, No tenderness, No warmth Integumentary: No erythema, No warmth, No cyanosis Neurological: Normal speech, Normal strength at 5/5 x4 extr, Normal tone, Normal affect Laboratory Data at Discharge: WBC 4.7 K/uL (4.3-10.9) 01/17/18 05:48 Hgb 13.5 g/dL (13.6-17.9) L 01/17/18 05:48 Hct 39.3 % (39.6-49.0) L 01/17/18 05:48 Plt Count 76 K/uL (152-406) L D 01/17/18 05:48 PT 15.4 SECONDS (9.5-12.5) H 01/11/18 15:20 INR 1.30 01/11/18 15:20 APTT 34.0 SECONDS (24.3-36.9) 01/11/18 15:20 Sodium 136 mEq/L (135-145) 01/17/18 05:48 Potassium 3.8 mEq/L (3.6-5.0) 01/17/18 05:48 BUN < 5 mg/dL (6-20) L 01/17/18 05:48 Creatinine 0.61 mg/dL (0.61-1.24) 01/17/18 05:48 Glucose 114 mg/dL (65-120) 01/17/18 05:48 Phosphorus 2.2 mg/dL (2.5-4.3) L 01/13/18 05:16 Magnesium 1.9 mg/dL (1.8-2.5) 01/15/18 05:45 Total Bilirubin 6.4 mg/dL (0.3-1.2) H* 01/17/18 05:48 AST 120 IU/L (10-42) H 01/17/18 05:48 ALT 67 IU/L (10-60) H 01/17/18 05:48 Alkaline Phosphatase 125 IU/L (42-121) H 01/17/18 05:48 Lipase 68 U/L (22-51) H 01/11/18 15:20 Home Medications: Chlordiazepoxide HCl [Librium*] 25 mg PO DAILY #7 cap 01/17/18 Ensure High Protein 237 ml PO BID PRN #60 can 01/17/18 Folic Acid 1 mg PO DAILY #30 tablet 01/17/18 Multivitamin [Daily Multiple Vitamin] 1 each PO DAILY #90 tablet 01/17/18 Omeprazole [Prilosec] 40 mg PO BID #60 capsule. 01/17/18 Thiamine HCl 100 mg PO DAILY #30 tablet 01/17/18 New Medications: Chlordiazepoxide HCl [Librium*] 25 mg PO DAILY #7 cap Ensure High Protein 237 ml PO BID PRN #60 can PRN Reason: For added nutrition Folic Acid 1 mg PO DAILY #30 tablet Multivitamin [Daily Multiple Vitamin] 1 each PO DAILY #90 tablet Omeprazole [Prilosec] 40 mg PO BID #60 capsule. Thiamine HCl 100 mg PO DAILY #30 tablet Patient Discharge Instructions: 1. Patient will need to follow up with his PCP in 1 week to follow up this hospitalization. 2. Patient presented with acute alcohol abuse with alcoholic hepatitis secondary to mild alcoholic cirrhosis with splenomegaly. Patient evaluated by GI. No intervention needed at this time. Recommendation is alcohol cessation. Patient may require AA therapy. Recommendations for the patient to continue with thiamine 100 mg daily and folic acid 1 mg daily. Patient may also continue with multi vitamin daily. Patient will be given a limited supply of Librium to be tapered off over the week. Recommendation is to recheck CBC in 1 week to follow up his progress. 2. Patient has GERD. Patient continue with Prilosec 20 mg 1 pill twice daily. 3. Patient has spermatocele on the left side. Recommendation is for the patient follow up with urology as an outpatient to further evaluate. Diet: AHA Activity: Fall precautions Time spent managing pt's care (in minutes): 55
== END 2018-01-17 13:58 | disposition home or self-care (01) | DRG 897 ==
LOC: ER 14:43 → ERHOLD 17:35 → 4TH 20:01
PROVIDERS: ADMIT Family Medicine; ATTEND Family Medicine
DX: F10.129 Alcohol abuse with intoxication, unspecified (principal); M62.82 Rhabdomyolysis; Y90.8 Blood alcohol level of 240 mg/100 ml or more; R04.0 Epistaxis; E87.6 Hypokalemia; E83.51 Hypocalcemia; D69.6 Thrombocytopenia, unspecified; N43.40 Spermatocele of epididymis, unspecified; R16.1 Splenomegaly, not elsewhere classified; K70.10 Alcoholic hepatitis without ascites; K70.30 Alcoholic cirrhosis of liver without ascites; K21.9 Gastro-esophageal reflux disease without esophagitis; E83.42 Hypomagnesemia
CPT/HCPCS: 36415; 70450; 76700; 76870; 80048; 80053; 80074; 80076; 80320; 81001; 81015; 82550; 82607; 82746; 83690; 83735; 84100; 84132; 85025; 85049; 85610; 85730; 86850; 86900; 86901; 94760; 96374; 96375; 99285; J0610; J2405; J2550; J3411; J3475; J7030

== ENCOUNTER 2018-11-23 09:35 | Emergency (ER) | payer OTHER ==
--- OUTSIDE RECORDS SUMMARY | 2018-11-23 10:30 | XMS REPORT | Clinical Summary ---
:1975 Author Organization [facility] Address [address] [place] [address] Care Team Providers Name Role Phone Joshua Easley MD Primary Care Provider Allergies No Known Allergies Medications Medication Sig Dispensed Refills Start Date End Date Status omeprazole (PRILOSEC Take 20 mg 0 Active OTC) 20 MG tablet by mouth as needed . folic acid (FOLVITE) Take 400 mcg 0 Discontinued 800 MCG tablet by mouth 9 daily. thiamine (VITAMIN B-1) Take 100 mg 0 Discontinued 100 MG tablet by mouth 9 daily. esomeprazole (NEXIUM) Take 1 30 capsule 11 04/27/2018 Discontinued 40 MG capsule (40 8 capsuleIndications: mg total) by Gastroesophageal mouth daily. reflux disease, esophagitis presence not specified esomeprazole (NEXIUM) Take 1 30 capsule 11 05/05/2018 Discontinued 40 MG capsule (40 9 capsuleIndications: mg total) by Gastroesophageal mouth daily. reflux disease, esophagitis presence not specified cholecalciferol Take 1,000 0 Discontinued (VITAMIN D3) 1,000 Units by 9 unit tablet mouth daily. lactulose (CEPHULAC) Take 1 360 each 3 06/22/2018 20 gram packet packet (20 g 9 total) by mouth 3 (three) times daily for 90 days. Active Problems Problem Noted Date Alcohol use disorder 04/28/2018 Alcoholic cirrhosis of liver without ascites 04/27/2018 Last Assessment & Plan: Diagnosis based on the constellation of clinical findings, laboratory parameters and imaging. Etiology is most likely due to Alcohol. His condition has decompensated with features of portal hypertension and varices and jaundice. He had alcohol hepatitis episode and he has done well since 12/2017 with alcohol abstinence. We will get labs today to calculate the MELD score and complete a comprehensive elton luation for other causes of cirrhosis. Cirrhosis guidelines were reviewed. Portal hypertension 04/27/2018 Last Assessment & Plan: Portal hypertension manifested by esophageal varices and HE. Esophageal varices in cirrhosis 04/27/2018 Last Assessment & Plan: Because of the risk for upper GI bleeding, all patients with portal hypertension should be screened for gastroesophageal varices and/or portal hypertensive gastropathy. He had a history of variceal bleed in 2007. We will schedule EGD. Immunity status testing 04/27/2018 Screening for malignant neoplasm 04/27/2018 Encounters Date Type Specialty Care Team Description 11/23/2018 Telephone Hepatology Beatriz Marinelli Abdominal Pain Chris, ISAAC 11/22/2018 [facility] Radiology Doni Mak Alcoholic cirrhosis of liver without ascites (HCC); Encounter MD Andrade Cancer screening; Esophageal varices in cirrhosis (HCC); Screening for malignant neoplasm 11/21/2018 Travel 11/21/2018 Outside Orders Doni Mak MD 10/04/2018 Office Visit Hepatology Doni Mak Alcoholic cirrhosis of liver without ascites (HCC) (Primary Dx); MD Andrade Cancer screening; Elizabeth Sheehan Esophageal varices in cirrhosis (HCC); VIKTORIYA Leach Screening for malignant neoplasm 06/22/2018 Office Visit Hepatology Doni Mak Alcoholic cirrhosis of liver without ascites (HCC); MD Andrade Portal hypertension (HCC); Esophageal varices in cirrhosis (HCC); Immunity status testing; Screening for malignant neoplasm 05/30/2018 Anesthesia Event Gastroenterology Melissa Cruz GRNA 05/30/2018 Surgery Gastroenterology Doni Mak UPPER ENDOSCOPY MD Andrade 05/30/2018 Hospital Gastroenterology Doni Mak Encounter MD Andrade 05/25/2018 Hospital Pre-Admission Testing Doni Mak Encounter MD Andrade Resource, [employer] Preadmit Phone 05/09/2018 [facility] Radiology Doni Mak Alcoholic cirrhosis of Encounter MD Andrade liver without ascites (HCC) 05/05/2018 Orders Only Hepatology Darrell Gerber RN reflux disease, esophagitis presence not specified 04/28/2018 Telephone Hepatology Javier Parkeren Procedure (EGD/MAC) L 04/27/2018 Office Visit Hepatology Doni Mak Alcoholic cirrhosis of liver without ascites (HCC) (Primary Dx); MD Andrade Portal hypertension (HCC); Esophageal varices in cirrhosis (HCC); Immunity status testing; Screening for malignant neoplasm; Alcohol abuse; Gastroesophageal reflux disease, esophagitis presence not specified; Alcohol use disorder (HCC) 04/21/2018 Telephone Hepatology Fabiola Hays Appointment after 11/22/2017 Family History Medical History Relation Name Comments Alzheimer's disease Father Liver disease Mother Relation Name Status Comments Father Mother Social History Tobacco Use Types Packs/Day Years Used Date Former Smoker Smokeless Tobacco: Never Used Comments: quit 20 years ago Alcohol Use Drinks/Week oz/Week Comments No last drink 97 days ago Sex Assigned at Date Recorded Not on file Job Start Date Occupation Industry Not on file Not on file Not on file Travel History Travel Start Travel End No recent travel history available. Last Filed Vital Signs Vital Sign Reading Time Taken Blood Pressure 144/84 10/04/2018 1:02 PM [employer] Pulse 89 10/04/2018 1:02 PM [employer] Temperature 36.9 C (98.4 F) 10/04/2018 1:02 PM [employer] Respiratory Rate 20 10/04/2018 1:02 PM [employer] Oxygen Saturation 99% 10/04/2018 1:02 PM [employer] Inhaled Oxygen Concentration - - Weight 84.5 kg (186 lb 4.8 oz) 10/04/2018 1:02 PM [employer] Height 175.3 cm (5' 9") 10/04/2018 1:02 PM [employer] Body Mass Index 27.51 10/04/2018 1:02 PM [employer] Plan of Treatment Date Type Specialty Care Team Description 04/03/2019 Office Visit Hepatology Resource, [facility] E Procedures Procedure Name Priority Date/Time Associated Diagnosis Comments US ABDOMEN COMPLETE Routine 11/22/2018 12:50 Alcoholic cirrhosis Results for this PM CDT of liver without procedure are in ascites (HCC) the results Cancer screening section. Esophageal varices in cirrhosis (HCC) Screening for malignant neoplasm CBC W/PLT COUNT & Routine 10/04/2018 1:53 Alcoholic cirrhosis Results for this AUTO DIFFERENTIAL PM AIRCREWMAN of liver without procedure are in ascites (HCC) the results Cancer screening section. ALPHA FETOPROTEIN Routine 10/04/2018 1:53 Alcoholic cirrhosis Results for this (AFP), TUMOR MARKER PM AIRCREWMAN of liver without procedure are in ascites (HCC) the results Cancer screening section. PROTHROMBIN TIME/INR Routine 10/04/2018 1:53 Alcoholic cirrhosis Results for this PM AIRCREWMAN of liver without procedure are in ascites (HCC) the results Cancer screening section. CBC W/PLT COUNT & Routine 10/04/2018 1:53 Alcoholic cirrhosis Results for this AUTO DIFFERENTIAL PM AIRCREWMAN of liver without procedure are in ascites (HCC) the results Cancer screening section. HEPATIC FUNCTION Routine 10/04/2018 1:53 Alcoholic cirrhosis Results for this PANEL PM [employer]CREWMAN of liver without procedure are in ascites (HCC) the results Cancer screening section. BASIC METABOLIC PANEL Routine 10/04/2018 1:53 Alcoholic cirrhosis Results for this (7) PM AIRCREWMAN of liver without procedure are in ascites (HCC) the results Cancer screening section. CBC W/PLT COUNT & Routine 06/22/2018 4:05 Alcoholic cirrhosis Results for this AUTO DIFFERENTIAL PM CDT of liver without procedure are in ascites (HCC) the results Portal hypertension section. (HCC) Esophageal varices in cirrhosis (HCC) Immunity status testing Screening for malignant neoplasm ALPHA FETOPROTEIN Routine 06/22/2018 4:05 Alcoholic cirrhosis Results for this (AFP), TUMOR MARKER PM CDT of liver without procedure are in ascites (HCC) the results Portal hypertension section. (HCC) Esophageal varices in cirrhosis (HCC) Immunity status testing Screening for malignant neoplasm PROTHROMBIN TIME/INR Routine 06/22/2018 4:05 Alcoholic cirrhosis Results for this PM CDT of liver without procedure are in ascites (HCC) the results Portal hypertension section. (HCC) Esophageal varices in cirrhosis (HCC) Immunity status testing Screening for malignant neoplasm CBC W/PLT COUNT & Routine 06/22/2018 4:05 Alcoholic cirrhosis Results for this AUTO DIFFERENTIAL PM CDT of liver without procedure are in ascites (HCC) the results Portal hypertension section. (HCC) Esophageal varices in cirrhosis (HCC) Immunity status testing Screening for malignant neoplasm HEPATIC FUNCTION Routine 06/22/2018 4:05 Alcoholic cirrhosis Results for this PANEL PM CDT of liver without procedure are in ascites (HCC) the results Portal hypertension section. (HCC) Esophageal varices in cirrhosis (HCC) Immunity status testing Screening for malignant neoplasm BASIC METABOLIC PANEL Routine 06/22/2018 4:05 Alcoholic cirrhosis Results for this (7) PM CDT of liver without procedure are in ascites (HCC) the results Portal hypertension section. (HCC) Esophageal varices in cirrhosis (HCC) Immunity status testing Screening for malignant neoplasm REPORT OF PROCEDURE - 05/30/2018 11:13 ENDOSCOPY URL AM CDT TISSUE EXAM AP Routine 05/30/2018 11:07 Results for this AM CDT procedure are in the results section. UPPER 05/30/2018 10:00 Alcoholic cirrhosis, ENDOSCOPY,BIOPSY AM CDT unspecified whether ascites present (HCC) UPPER ENDOSCOPY 05/30/2018 10:00 Alcoholic cirrhosis, AM CDT unspecified whether ascites present (HCC) MR ABDOMEN Routine 05/09/2018 12:06 Results for this WITH/WITHOUT IV PM CDT procedure are in CONTRAST the results section. VITAMIN D, 25-HYDROXY Routine 04/27/2018 11:22 Alcohol abuse Results for this AM CDT procedure are in the results section. VITAMIN B12 AND Routine 04/27/2018 11:22 Alcohol abuse Results for this FOLATE AM CDT procedure are in the results section. ALPHA FETOPROTEIN Routine 04/27/2018 11:22 Alcoholic cirrhosis Results for this (AFP), TUMOR MARKER AM CDT of liver without procedure are in ascites (HCC) the results section. MITOCHONDRIA M2 Routine 04/27/2018 11:22 Alcoholic cirrhosis Results for this ANTIBODY (IGG) AM CDT of liver without procedure are in ascites (HCC) the results section. ANTI-NUCLEAR ANTIBODY Routine 04/27/2018 11:22 Alcoholic cirrhosis Results for this (MATHEUS) AM CDT of liver without procedure are in ascites (HCC) the results section. [id number]\\, Routine 04/27/2018 11:22 Alcoholic cirrhosis Results for this SERUM AM CDT of liver without procedure are in ascites (HCC) the results section. FERRITIN Routine 04/27/2018 11:22 Alcoholic cirrhosis Results for this AM CDT of liver without procedure are in ascites (HCC) the results section. IRON, TIBC, % SAT. Routine 04/27/2018 11:22 Alcoholic cirrhosis Results for this (WITHOUT FERRITIN) AM CDT of liver without procedure are in ascites (HCC) the results section. HEPATITIS C ANTIBODY Routine 04/27/2018 11:22 Alcoholic cirrhosis Results for this AM CDT of liver without procedure are in ascites (HCC) the results section. HEPATITIS B CORE Routine 04/27/2018 11:22 Alcoholic cirrhosis Results for this ANTIBODY, TOTAL AM CDT of liver without procedure are in ascites (HCC) the results section. HEPATITIS B SURFACE Routine 04/27/2018 11:22 Alcoholic cirrhosis Results for this ANTIBODY AM CDT of liver without procedure are in ascites (HCC) the results section. HEPATITIS B SURFACE Routine 04/27/2018 11:22 Alcoholic cirrhosis Results for this ANTIGEN AM CDT of liver without procedure are in ascites (HCC) the results section. HEPATITIS A ANTIBODY, Routine 04/27/2018 11:22 Alcoholic cirrhosis Results for this IGG AM CDT of liver without procedure are in ascites (HCC) the results section. CBC W/PLT COUNT & Routine 04/27/2018 11:21 Alcoholic cirrhosis Results for this AUTO DIFFERENTIAL AM CDT of liver without procedure are in ascites (HCC) the results section. ACTIN (SMOOTH MUSCLE) Routine 04/27/2018 11:21 Alcoholic cirrhosis Results for this ANTIBODY, IGG AM CDT of liver without procedure are in ascites (HCC) the results section. CERULOPLASMIN Routine 04/27/2018 11:21 Alcoholic cirrhosis Results for this AM CDT of liver without procedure are in ascites (HCC) the results section. PROTHROMBIN TIME/INR Routine 04/27/2018 11:21 Alcoholic cirrhosis Results for this AM CDT of liver without procedure are in ascites (HCC) the results section. CBC W/PLT COUNT & Routine 04/27/2018 11:21 Alcoholic cirrhosis Results for this AUTO DIFFERENTIAL AM CDT of liver without procedure are in ascites (HCC) the results section. BILIRUBIN, DIRECT Routine 04/27/2018 11:21 Alcoholic cirrhosis Results for this AM CDT of liver without procedure are in ascites (HCC) the results section. COMPREHENSIVE Routine 04/27/2018 11:21 Alcoholic cirrhosis Results for this METABOLIC PANEL AM CDT of liver without procedure are in ascites (HCC) the results section. after 11/22/2017 Results US abdomen complete (11/22/2018 12:50 PM CDT) Narrative Performed At FINAL REPORT [facility] Abdominal ultrasound dated 11/22/2018 Clinical information:Cirrhosis, screening for cancer Comment:Real-time transabdominal ultrasound was performed. Liver is normal in size and measures 15.4 cm in length. The echogenicity of the liver is heterogeneous.No focal lesion is noted in the liver.Spleen is enlarged measuring 13.4 x 5.7 x 5.6 cm. Gallbladder is contracted. Gallstone is present. No biliary dilatation is seen. Common bile duct measures 4 mm in diameter.Main portal vein measures 13 mm in diameter. Pancreas is suboptimally visualized secondary to overlying gas. Right kidney measures 11.3 x 6.4 x 7.0 cm.Left kidney measures 12.7 x 5.2 x 6.1 cm.Echogenicity of both kidney is normal. No hydronephrosis or solid mass seen in either kidney.No cystis seen in the either kidney. No ascites is present in the abdomen. Abdominal aorta is normal in caliber. IVC and Hepatic veins are patent. Impression: 1. Heterogeneous appearing liver without focal hepatic mass. 2. Splenomegaly 3. Incomplete visualization the pancreas secondary to overlying gas. Signed: Ericka Riley MD Report Verified Date/Time:11/22/2018 14:02:02 Reading Location: [address] Radiology Reading Room Procedure Note Interface, External Ris In - 11/22/2018 2:04 PM CDT FINAL REPORT Abdominal ultrasound dated 11/22/2018 Clinical information:Cirrhosis, screening for cancer Comment: Real-time transabdominal ultrasound was performed. Liver is normal in size and measures 15.4 cm in length. The echogenicity of the liver is heterogeneous. No focal lesion is noted in the liver. Spleen is enlarged measuring 13.4 x 5.7 x 5.6 cm. Gallbladder is contracted. Gallstone is present. No biliary dilatation is seen. Common bile duct measures 4 mm in diameter. Main portal vein measures 13 mm in diameter. Pancreas is suboptimally visualized secondary to overlying gas. Right kidney measures 11.3 x 6.4 x 7.0 cm. Left kidney measures 12.7 x 5.2 x 6.1 cm. Echogenicity of both kidney is normal. No hydronephrosis or solid mass seen in either kidney. No cyst is seen in the either kidney. No ascites is present in the abdomen. Abdominal aorta is normal in caliber. IVC and Hepatic veins are patent. Impression: 1. Heterogeneous appearing liver without focal hepatic mass. 2. Splenomegaly 3. Incomplete visualization the pancreas secondary to overlying gas. Signed: Ericka Riley MD Report Verified Date/Time: 11/22/2018 14:02:02 Reading Location: [address] Radiology Reading Room Performing Organization Address City/State/Zipcode Phone Number GE RIS CBC with platelet count + automated diff (10/04/2018 1:53 PM AIRCREWMAN)Only the most recent of3 resultswithin the time period is included. WBC 4.3 3.5 - 10.5 K/L [facility] RBC 4.22 (L) 4.63 - 6.08 M/L [facility] Hemoglobin 14.2 13.7 - 17.5 GM/DL [facility] Hematocrit 40.2 40.1 - 51.0 % [facility] MCV 95.3 (H) 79.0 - 92.2 fL [facility] MCH 33.6 (H) 25.7 - 32.2 pg [facility] MCHC 35.3 32.3 - 36.5 GM/DL [facility] RDW 12.7 11.6 - 14.4 % [facility] Platelets 124 (L) 150 - 450 K/CU MM [facility] MPV 9.1 (L) 9.4 - 12.4 fL [facility] nRBC 0 0 - 0 /100 WBC [facility] % Neutros 49 % [facility] % Lymphs 34 % [facility] % Monos 11 % [facility] % Eos 5 % [facility] % Baso 1 % [facility] # Neutros 2.13 1.78 - 5.38 K/L [facility] # Lymphs 1.46 1.32 - 3.57 K/L [facility] # Monos 0.47 0.30 - 0.82 K/L [facility] # Eos 0.21 0.04 - 0.54 K/L [facility] # Baso 0.05 0.01 - 0.08 K/L [facility] Immature Granulocytes-Relative 0 0 - 1 % [facility] Specimen Blood Performing Organization Address [facility] Phone Number [address] [address] [place] Alpha fetoprotein (AFP), tumor marker (10/04/2018 1:53 PM AIRCREWMAN)Only the most recent of3 resultswithin the time period is included. Alpha-Fetoprotein 7.1 <10.0 ng/mL [facility] Specimen Blood Performing Organization Address [facility] Phone Number [address] [address] [phone] [place] Pro-time/INR (10/04/2018 1:53 PM AIRCREWMAN)Only the most recent of3 resultswithin the time period is included. Protime 14.7 11.7 - 14.7 seconds [facility] INR 1.1 <=5.9 [facility] Specimen Blood Narrative Performed At RECOMMENDED COUMADIN/WARFARIN INR THERAPY [facility] RANGES STANDARD DOSE: 2.0 - 3.0 Includes: PROPHYLAXIS for venous thrombosis, systemic embolization; TREATMENT for venous thrombosis and/or pulmonary embolus. HIGH RISK: Target INR is 2.5-3.5 for patients with mechanical heart valves. Performing Organization Address City/[facility] Phone Number [address] [phone] [place] Hepatic function panel (10/04/2018 1:53 PM AIRCREWMAN)Only the most recent of2 resultswithin the time period is included. Protein, Total 7.4 6.0 - 8.3 gm/dL [facility] Albumin 3.4 (L) 3.5 - 5.0 g/dL [facility] Total Bilirubin 1.9 (H) 0.2 - 1.2 mg/dL [facility] Bilirubin, Direct 0.8 (H) 0.1 - 0.5 mg/dL [facility] Alkaline Phosphatase 102 40 - 150 U/L [facility] AST 30 5 - 34 U/L [facility] ALT 25 6 - 55 U/L [facility] Specimen Blood Performing Organization Address City/State/Zipcode Phone Number [facility] [address] [place] [address] CENTER Basic Metabolic Panel (10/04/2018 1:53 PM AIRCREWMAN)Only the most recent of2 resultswithin the time period is included. Sodium 138 136 - 145 meq/L [facility] Potassium 4.2 3.5 - 5.1 meq/L [facility] Chloride 104 98 - 107 meq/L [facility] CO2 27 22 - 29 meq/L [facility] BUN 8 7 - 21 mg/dL [facility] Creatinine 0.74 0.57 - 1.25 mg/dL [facility] Glucose 111 (H) 70 - 105 mg/dL [facility] Calcium 9.3 8.4 - 10.2 mg/dL [facility] EGFR 117Comment: ESTIMATED GFR IS mL/min/1.73 sq m [facility] NOT ACCURATE CREATININE [facility]ENTER CLEARANCE IN PREDICTING GLOMERULAR FILTRATION RATE. ESTIMATED GFR IS NOT APPLICABLE FOR DIALYSIS PATIENTS. Specimen Blood Performing Organization Address City/[facility]/Zipcode Phone Number [facility] [address] [place] [phone] [place] REPORT OF PROCEDURE - ENDOSCOPY URL (05/30/2018 11:13 AM CDT) Narrative Performed At Tissue Exam (05/30/2018 11:07 AM CDT) Case Report Surgical Pathology Report Case: [id number] [facility] Authorizing Provider:Doni Mak MDCollected: 05/30/2018 1107 [facility] Ordering Location: [facility] Endoscopy Received: 05/30/2018 1445 Services Pathologist: Eduarda Hernandez MD Specimens: A) - Stomach,Antrum B) - Small Bowel, NOS DIAGNOSIS A. STOMACH, ANTRUM, BIOPSY [facility] - CHRONIC INACTIVE GASTRITIS, [facility] - NO HELICOBACTER PYLORI IDENTIFIED ON WARTHIN STARRY STAIN B. SMALL BOWEL, NOS, BIOPSY - NO DIAGNOSTIC ALTERATION Signing Pathologist Direct Phone Line: [phone] CPT Code(s) 19750 X 2 , 30549 [facility] CLINICAL HISTORY Alcoholic cirrhosis [facility] SPECIMEN SOURCE A. Antrum biopsy; B. Small [facility] bowel biopsy [facility] The specimen is received in two containers of formalin both labeled with the patient's information. [facility] Part A labeled "stomach antrum biopsy" consists of two fragments of miranda tissue measuring 0.1 and 0.3 cm, submitted A1. Part B labeled "small bowel biopsy" consists of three fragments of miranda tissue ranging from less than 0.1 to 0.5 cm, submitted B1. CG/pl MICROSCOPIC DESCRIPTION EXAMINATION IS PERFORMED. [facility] Specimen Tissue - Stomach, Antrum Performing Organization Address City/State/Zipcode Phone Number [facility] [address] [place] [address] CENTER MR abdomen without & with IV contrast (05/09/2018 12:06 PM CDT) Narrative Performed At FINAL REPORT [facility] RIS History: Cirrhosis, evaluate for portal hypertension, HCC screening Comparison: None Technique : Multiplanar imaging with multiple sequences of the abdomen was performed utilizing a 3.0 shantal magnet with and without the administration of gadolinium contrast. Comment: The lung bases are clear. There are no focal or diffuse abnormalities of the osseous structures. The subcutaneous soft tissues as well as the musculature are within normal limits. The adrenal glands, kidneys, pancreas, stomach, and duodenum are within normal limits. There is no abdominal or retroperitoneal lymphadenopathy. There is hepatic cirrhosis. No suspicious enhancing hepatic lesions are seen. The patient does have splenomegaly. The visualized portions of the small bowel are within normal limits. There is diverticulosis of the visualized portions of the large bowel. No ascites is identified. The portal vein measures up to a maximum of 1.3 cm in diameter. There is no portal, splenic, or superior mesenteric vein thrombosis. There are gastroesophageal varices. Impression: 1. Hepatic cirrhosis. No suspicious enhancing hepatic lesions are seen. 2. Splenomegaly with findings of portal hypertension. Signed: Parish Schmidt MD Report Verified Date/Time:05/09/2018 12:37:20 [facility] CT Body Reading Room Procedure Note Interface, External Ris In - 05/09/2018 12:39 PM CDT FINAL REPORT History: Cirrhosis, evaluate for portal hypertension, HCC screening Comparison: None Technique : Multiplanar imaging with multiple sequences of the abdomen was performed utilizing a 3.0 shantal magnet with and without the administration of gadolinium contrast. Comment: The lung bases are clear. There are no focal or diffuse abnormalities of the osseous structures. The subcutaneous soft tissues as well as the musculature are within normal limits. The adrenal glands, kidneys, pancreas, stomach, and duodenum are within normal limits. There is no abdominal or retroperitoneal lymphadenopathy. There is hepatic cirrhosis. No suspicious enhancing hepatic lesions are seen. The patient does have splenomegaly. The visualized portions of the small bowel are within normal limits. There is diverticulosis of the visualized portions of the large bowel. No ascites is identified. The portal vein measures up to a maximum of 1.3 cm in diameter. There is no portal, splenic, or superior mesenteric vein thrombosis. There are gastroesophageal varices. Impression: 1. Hepatic cirrhosis. No suspicious enhancing hepatic lesions are seen. 2. Splenomegaly with findings of portal hypertension. Signed: Parish Schmidt MD Report Verified Date/Time: 05/09/2018 12:37:20 [facility] C[facility] Body Reading Room Performing Organization Address City/[facility] Phone Number GE RIS Hepatitis A antibody, IgG (04/27/2018 11:22 AM CDT) Hep A IgG Nonreactive Nonreactive [facility] Specimen Blood Performing Organization Address [facility]/Zipcode Phone Number [address] [address] CENTER Vitamin B12 and Folate (04/27/2018 11:22 AM CDT) Vitamin B12 350 213 - 816 pg/mL [facility] Folate 14.6 >=7.0 ng/mL [facility] Specimen Blood Performing Organization Address [facility] Phone Number [address] [address] C[place] Mitochondrial Antibodies, M2 (04/27/2018 11:22 AM CDT) Mitochondria M2 Ab <20.0 See Note: U [facility] Comment: Reference Range: NEGATIVE:< OR=20.0 EQUIVOCAL: 20.1-24.9 POSITIVE:> OR=25.0 Specimen Blood Narrative Performed At Performing Lab [facility] [address] [address] Vinicius Mckeon MD, PhD, EDE Performing Organization Address [facility] Phone Number [place] [address] [place] [address] Iron, TIBC, % sat. (without ferritin) (04/27/2018 11:22 AM CDT) Iron 186 (H) 40 - 160 ug/dL [facility] TIBC 228 (L) 250 - 450 ug/dL [facility] Iron % Saturation 82 (H) 20 - 55 % [facility] Specimen Blood Performing Organization Address [facility] Phone Number [address] [address] CENTER Hepatitis C antibody (04/27/2018 11:22 AM CDT) Hepatitis C Ab NON-REACTIVE Nonreactive [facility] Specimen Blood Performing Organization Address City/[facility] Phone Number [address] [address] C[place] Ocwrs-9-Dgsjbfewkdc (04/27/2018 11:22 AM CDT) A-1 Antitrypsin 141.30 90.00 - 200.00 mg/dL [facility] Specimen Blood Performing Organization Address [facility] Phone Number [address] [address] [place] Hepatitis B core antibody, total (04/27/2018 11:22 AM CDT) Hep B Core Total Ab NON-REACTIVE Nonreactive [facility] Specimen Blood Performing Organization Address [facility] Phone Number [address] [address] [phone] [place] Vitamin D, 25-Hydroxy (04/27/2018 11:22 AM CDT) Vitamin D 25-Hydroxy 17.0 6.6 - 49.9 ng/mL [facility] Specimen Blood Narrative Performed At [facility] Effective 06/09/2017: Reference Range Change New: 6.6-49.9 ng/mL Previous: 13.0-47.8 ng/mL Recommended Vitamin D Target Range: 30.0-40.0 ng/mL Performing Organization Address City/[facility] Phone Number [address] [address] [place] Hepatitis B surface antibody (04/27/2018 11:22 AM CDT) Hep B S Ab <8.0 <8.0 mIU/mL [facility] Specimen Blood Performing Organization Address City/[facility] Phone Number [address] [place] [address] [phone] [place] Hepatitis B surface antigen (04/27/2018 11:22 AM CDT) hepatitis B Surface Ag NON-REACTIVE Nonreactive [facility] Specimen Blood Performing Organization Address City/[facility] Phone Number [address] [address] [phone] [place] Anti-Nuclear Antibody (MATHEUS) (04/27/2018 11:22 AM CDT) MATHEUS Negative Negative [facility] Specimen Blood Narrative Performed At [facility] Test performed by IFA method. Test performed by IFA method. Performing Organization Address [facility] Phone Number [address] [address] [phone] [place] Ferritin (04/27/2018 11:22 AM CDT) Ferritin 205 5 - 275 ng/mL [facility] Specimen Blood Performing Organization Address [facility] Phone Number [address] [address] [place] Actin (Smooth Muscle) Antibody, IgG (04/27/2018 11:21 AM CDT) Anti-Smooth Muscle Ab <20 See Note: U [facility] Comment: [facility] Reference Range: <20 NEGATIVE > OR=20 POSITIVE Antibodies recognizing actin are the main component of smooth muscle antibodies associated with autoimmune liver disease. Actin antibodies are found in approximately 75% of patients with autoimmune hepatitis (AIH) type 1, approximately 65% of patients with autoimmune cholangitis, approximately 30% of patients with primary biliary cirrhosis, and approximately 2% of healthy people. High values are closely correlated with AIH type 1. Specimen Blood Narrative Performed At Performing Lab [facility] [place] [id number] [place] [address] Vinicius Mckeon MD, PhD, EDE Performing Organization Address City/[facility] Phone Number [place] [address] [place] [address] Ceruloplasmin (04/27/2018 11:21 AM CDT) Ceruloplasmin 18 18 - 36 mg/dL [facility] Comment: Adults:Males: 18-36 mg/dL Females: 18-53 mg/dL Pediatrics:Males (mg/dL)Females (mg/dL) 0-30 Days 8-25 3-28 31 Days-11 Month -43 1-3 [id number] 4-6 Ddqwh47-1276-56 7-9 Knyqr42-6833-50 10-12 Glkqb08-5179-93 13-15 Emwjx13-9045-53 16-18 Znrmc71-6068-08 The pediatric ranges are derived from the following criteria: Camila SJ, Milana STALLWORTH, Cecille J et al Pediatric reference ranges for Udrp-4-Zqgjqhngluztv and ceruloplasmin. Clin. Chem 1997; 43:S1999 Pediatric Reference Ranges, 2nd., [place] Camilaet al. editors. [employer], [place], [place] 1997. Specimen Blood Narrative Performed At Performing Lab [facility] *[facility] [employer] [facility], [address] [place] [phone] Nickie Nolan MD, PhD Performing Organization Address City/State/Zipcode Phone Number [place] [address] INCORPORATED [address] [facility] Bilirubin, direct (04/27/2018 11:21 AM CDT) Bilirubin, Direct 0.7 (H) 0.1 - 0.5 mg/dL [facility] Specimen Blood Performing Organization Address City/State/Zipcode Phone Number [facility] [address] [place] [address] [place] Comprehensive Metabolic Panel (04/27/2018 11:21 AM CDT) Protein, Total 7.9 6.0 - 8.3 gm/dL [facility] Albumin 3.3 (L) 3.5 - 5.0 g/dL [facility] Alkaline Phosphatase 104 40 - 150 U/L [facility] Total Bilirubin 2.0 (H) 0.2 - 1.2 mg/dL [facility] Sodium 140 136 - 145 meq/L [facility] Potassium 3.3 (L) 3.5 - 5.1 meq/L [facility] Chloride 106 98 - 107 meq/L [facility] CO2 27 22 - 29 meq/L [facility] BUN 5 (L) 7 - 21 mg/dL [facility] Creatinine 0.76 0.57 - 1.25 mg/dL [facility] Glucose 108 (H) 70 - 105 mg/dL [facility] Calcium 9.3 8.4 - 10.2 mg/dL [facility] AST 30 5 - 34 U/L [facility] ALT 15 6 - 55 U/L [facility] EGFR 113Comment: ESTIMATED mL/min/1.73 sq m [facility] GFR IS NOT ACCURATE [facility] CREATININE CLEARANCE IN PREDICTING GLOMERULAR FILTRATION RATE. ESTIMATED GFR IS NOT APPLICABLE FOR DIALYSIS PATIENTS. Specimen Blood Performing Organization Address City/State/Zipcode Phone Number [facility] [address] [place] [address] [phone] CENTER after 11/22/2017 Insurance Payer Benefit Plan / Subscriber ID Type Phone Address Group MEDICAID - MEDICAID MEDICAID [facility] ST[facility] xxxxxxxxx Medicaid Contracted MGD CARE
--- OUTSIDE RECORDS SUMMARY | 2018-11-23 10:30 | XMS REPORT ---
:1975 [facility] Address [address] [place] [address] Care Team Providers Name Role Phone DONI MAK LILIAM Unavailable Unavailable Problems This patient has no known problems. Allergies, Adverse Reactions, Alerts This patient has no known allergies or adverse reactions. Medications This patient has no known medications. Results Test Description Test Time Test Comments Text Results Atomic Results Result Comments U/S, ABDOMINAL, 2018-11-22 Referring: Joshua FINAL REPORT PATIENT ID: COMPLETE 14:02:00 Yaw Easley for [id number] Abdominal Exam:->Cirrhosis, ultrasound dated 11/22/2018 screening for cancer Clinical information:Cirrhosis, screening for cancer Comment: Real-time [...] 1. Heterogeneous appearing liver without focal hepatic mass.2. Splenomegaly3. Incomplete visualization the pancreas secondary to overlying gas. Signed: Ericka Riley MDReport Verified Date/Time: 11/22/2018 14:02:02 Reading Location: [address] Radiology Reading Room A FETOPROTEIN (AFP), TUMOR MARKER 2018-10-04 15:28:00 Test Item Value Reference Range Comments ALPHA-FETOPROTEIN (BEAKER) (test meej=2222) 7.1 ng/mL <10.0 HEPATIC FUNCTION [id number] 15:18:00 Test Item Value Reference Range Comments TOTAL PROTEIN (BEAKER) (test hzzq=557) 7.4 gm/dL 6.0-8.3 ALBUMIN (BEAKER) (test aigu=2176) 3.4 g/dL 3.5-5.0 BILIRUBIN TOTAL (BEAKER) (test zmcv=777) 1.9 mg/dL 0.2-1.2 BILIRUBIN DIRECT (BEAKER) (test rant=666) 0.8 mg/dL 0.1-0.5 ALKALINE PHOSPHATASE (BEAKER) (test aror=325) 102 U/L 40-150 AST (SGOT) (BEAKER) (test xdrk=537) 30 U/L 5-34 ALT (SGPT) (BEAKER) (test zlpi=684) 25 U/L 6-55 BASIC METABOLIC [id number] 15:18:00 Test Item Value Reference Range Comments SODIUM (BEAKER) (test 138 meq/L 136-145 kilm=298) POTASSIUM (BEAKER) (test 4.2 meq/L 3.5-5.1 tqps=914) CHLORIDE (BEAKER) (test 104 meq/L 98-107 xluw=261) CO2 (BEAKER) (test 27 meq/L 22-29 nmhq=279) BLOOD UREA NITROGEN 8 mg/dL 7-21 (BEAKER) (test atnc=993) CREATININE (BEAKER) (test 0.74 mg/dL 0.57-1.25 fggg=273) GLUCOSE RANDOM (BEAKER) 111 mg/dL 70-105 (test ulwr=255) CALCIUM (BEAKER) (test 9.3 mg/dL 8.4-10.2 jugs=409) EGFR (BEAKER) (test 117 mL/min/1.73 sq m ESTIMATED GFR IS NOT ggel=2403) ACCURATE CREATININE CLEARANCE IN PREDICTING GLOMERULAR FILTRATION RATE. ESTIMATED GFR IS NOT APPLICABLE FOR DIALYSIS PATIENTS. PROTHROMBIN [id number] 14:57:00 Test Item Value Reference Range Comments PROTIME (BEAKER) (test anls=532) 14.7 seconds 11.7-14.7 INR (BEAKER) (test tytg=337) 1.1 <=5.9 RECOMMENDED COUMADIN/WARFARIN INR THERAPY RANGESSTANDARD DOSE: 2.0 - 3.0 Includes: PROPHYLAXIS forvenous thrombosis, systemic embolization; TREATMENT for venous thrombosis and/or pulmonary embolus.HIGH RISK: Target INR is 2.5-3.5 for patients with mechanical heart valves.CBC W/PLT COUNT & AUTO [id number] 14:53:00 Test Item Value Reference Range Comments WHITE BLOOD CELL COUNT (BEAKER) (test ogdk=406) 4.3 K/ L 3.5-10.5 RED BLOOD CELL COUNT (BEAKER) (test qaxs=552) 4.22 M/ L 4.63-6.08 HEMOGLOBIN (BEAKER) (test nwje=188) 14.2 GM/DL 13.7-17.5 HEMATOCRIT (BEAKER) (test flzm=709) 40.2 % 40.1-51.0 MEAN CORPUSCULAR VOLUME (BEAKER) (test ahfl=936) 95.3 fL 79.0-92.2 MEAN CORPUSCULAR HEMOGLOBIN (BEAKER) (test 33.6 pg 25.7-32.2 ndxf=184) MEAN CORPUSCULAR HEMOGLOBIN CONC (BEAKER) (test 35.3 GM/DL 32.3-36.5 xxcq=031) RED CELL DISTRIBUTION WIDTH (BEAKER) (test 12.7 % 11.6-14.4 qjga=203) PLATELET COUNT (BEAKER) (test xuua=716) 124 K/CU MM 150-450 MEAN PLATELET VOLUME (BEAKER) (test xeuh=313) 9.1 fL 9.4-12.4 NUCLEATED RED BLOOD CELLS (BEAKER) (test 0 /100 WBC 0-0 sexh=747) NEUTROPHILS RELATIVE PERCENT (BEAKER) (test 49 % vnuy=395) LYMPHOCYTES RELATIVE PERCENT (BEAKER) (test 34 % jzfx=770) MONOCYTES RELATIVE PERCENT (BEAKER) (test 11 % unil=935) EOSINOPHILS RELATIVE PERCENT (BEAKER) (test 5 % ddwh=985) BASOPHILS RELATIVE PERCENT (BEAKER) (test 1 % gisy=237) NEUTROPHILS ABSOLUTE COUNT (BEAKER) (test 2.13 K/ L 1.78-5.38 tjlf=046) LYMPHOCYTES ABSOLUTE COUNT (BEAKER) (test 1.46 K/ L 1.32-3.57 gwsq=520) MONOCYTES ABSOLUTE COUNT (BEAKER) (test 0.47 K/ L 0.30-0.82 jiwe=283) EOSINOPHILS ABSOLUTE COUNT (BEAKER) (test 0.21 K/ L 0.04-0.54 ugjd=369) BASOPHILS ABSOLUTE COUNT (BEAKER) (test 0.05 K/ L 0.01-0.08 rgzz=974) IMMATURE GRANULOCYTES-RELATIVE PERCENT (BEAKER) 0 % 0-1 (test putv=6351) ALPHA FETOPROTEIN (AFP), TUMOR [id number] 19:50:00 Test Item Value Reference Range Comments ALPHA-FETOPROTEIN (BEAKER) (test lvjz=1581) 7.2 ng/mL <10.0 BASIC METABOLIC [id number] 17:53:00 Test Item Value Reference Range Comments SODIUM (BEAKER) (test 137 meq/L 136-145 njlr=289) POTASSIUM (BEAKER) (test 4.0 meq/L 3.5-5.1 holm=300) CHLORIDE (BEAKER) (test 104 meq/L 98-107 polh=267) CO2 (BEAKER) (test 27 meq/L 22-29 gbpq=876) BLOOD UREA NITROGEN 11 mg/dL 7-21 (BEAKER) (test uyrj=060) CREATININE (BEAKER) (test 0.75 mg/dL 0.57-1.25 zdtw=518) GLUCOSE RANDOM (BEAKER) 90 mg/dL 70-105 (test sjos=366) CALCIUM (BEAKER) (test 9.5 mg/dL 8.4-10.2 dnfj=670) EGFR (BEAKER) (test 115 mL/min/1.73 sq m ESTIMATED GFR IS NOT qvtf=8045) ACCURATE CREATININE CLEARANCE IN PREDICTING GLOMERULAR FILTRATION RATE. ESTIMATED GFR IS NOT APPLICABLE FOR DIALYSIS PATIENTS. Specimen slightly ictericHEPATIC FUNCTION [id number] 17:53:00 Test Item Value Reference Range Comments TOTAL PROTEIN (BEAKER) (test lgqr=205) 8.1 gm/dL 6.0-8.3 ALBUMIN (BEAKER) (test zmyy=7155) 3.7 g/dL 3.5-5.0 BILIRUBIN TOTAL (BEAKER) (test hccf=312) 2.0 mg/dL 0.2-1.2 BILIRUBIN DIRECT (BEAKER) (test ekbd=093) 0.8 mg/dL 0.1-0.5 ALKALINE PHOSPHATASE (BEAKER) (test qajg=010) 118 U/L 40-150 AST (SGOT) (BEAKER) (test qthc=727) 39 U/L 5-34 ALT (SGPT) (BEAKER) (test gqea=035) 39 U/L 6-55 Specimen slightly ictericPROTHROMBIN [id number] 17:31:00 Test Item Value Reference Range Comments PROTIME (BEAKER) (test woty=977) 14.1 seconds 11.7-14.7 INR (BEAKER) (test bcsq=229) 1.1 <=5.9 RECOMMENDED COUMADIN/WARFARIN INR THERAPY RANGESSTANDARD DOSE: 2.0 - 3.0 Includes: PROPHYLAXIS forvenous thrombosis, systemic embolization; TREATMENT for venous thrombosis and/or pulmonary embolus.HIGH RISK: Target INR is 2.5-3.5 for patients with mechanical heart valves.CBC W/PLT COUNT & AUTO [id number] 17:25:00 Test Item Value Reference Range Comments WHITE BLOOD CELL COUNT (BEAKER) (test vtwy=716) 7.5 K/ L 3.5-10.5 RED BLOOD CELL COUNT (BEAKER) (test bvyu=018) 4.61 M/ L 4.63-6.08 HEMOGLOBIN (BEAKER) (test cbyf=881) 15.7 GM/DL 13.7-17.5 HEMATOCRIT (BEAKER) (test iprt=839) 45.5 % 40.1-51.0 MEAN CORPUSCULAR VOLUME (BEAKER) (test koen=487) 98.7 fL 79.0-92.2 MEAN CORPUSCULAR HEMOGLOBIN (BEAKER) (test 34.1 pg 25.7-32.2 fpfe=612) MEAN CORPUSCULAR HEMOGLOBIN CONC (BEAKER) (test 34.5 GM/DL 32.3-36.5 rtlw=151) RED CELL DISTRIBUTION WIDTH (BEAKER) (test 13.8 % 11.6-14.4 bcmy=165) PLATELET COUNT (BEAKER) (test pxwd=496) 144 K/CU MM 150-450 MEAN PLATELET VOLUME (BEAKER) (test gfmz=327) 8.8 fL 9.4-12.4 NUCLEATED RED BLOOD CELLS (BEAKER) (test 0 /100 WBC 0-0 aqez=430) NEUTROPHILS RELATIVE PERCENT (BEAKER) (test 59 % blag=025) LYMPHOCYTES RELATIVE PERCENT (BEAKER) (test 29 % lpas=092) MONOCYTES RELATIVE PERCENT (BEAKER) (test 9 % qbts=012) EOSINOPHILS RELATIVE PERCENT (BEAKER) (test 3 % jvfr=427) BASOPHILS RELATIVE PERCENT (BEAKER) (test 1 % mapv=871) NEUTROPHILS ABSOLUTE COUNT (BEAKER) (test 4.41 K/ L 1.78-5.38 bhrk=434) LYMPHOCYTES ABSOLUTE COUNT (BEAKER) (test 2.12 K/ L 1.32-3.57 ucki=446) MONOCYTES ABSOLUTE COUNT (BEAKER) (test 0.63 K/ L 0.30-0.82 kphv=778) EOSINOPHILS ABSOLUTE COUNT (BEAKER) (test 0.20 K/ L 0.04-0.54 kjjv=994) BASOPHILS ABSOLUTE COUNT (BEAKER) (test 0.08 K/ L 0.01-0.08 gmqh=943) IMMATURE GRANULOCYTES-RELATIVE PERCENT (BEAKER) 0 % 0-1 (test khqp=8313) TISSUE [id number] 18:59:00Surgical Pathology Report Case: [id number] Authorizing Provider: Doni Mak MD Collected: 05/30/2018 1107 Ordering Location: [facility] Endoscopy Received: 05/30/2018 1445 Services Pathologist: Eduarda Hernandez MD Specimens: A) - Stomach, Antrum B) -Small Bowel, NOS A. STOMACH, ANTRUM, BIOPSY- CHRONIC INACTIVE GASTRITIS, MILD- NO HELICOBACTER PYLORI IDENTIFIED ON WARTHIN STARRY STAINB. SMALL BOWEL, NOS, BIOPSY- NO DIAGNOSTIC ALTERATION Signing Pathologist Direct Phone Line: [phone] signed by Edurada Hernandez MD on 05/31/2018 at 6:59 [id number] X 2 , [id number] cirrhosis A. Antrum biopsy; B. Small bowel biopsyThe specimen is received in two containers of formalin both labeled with the patient 's information.Part A labeled "stomach antrum biopsy" consists of two fragments of miranda tissue measuring 0.1 and 0.3 cm, submitted A1. Part B labeled "small bowel biopsy" consists of three fragments of miranda tissue ranging from less than 0.1 to 0.5 cm, submitted B1. CG/pl EXAMINATION IS PERFORMED.MR, ABDOMEN, [id number] 12:37:00Referring: Joshua EasleySHABBIR REPORT History: Cirrhosis, evaluate for portal hypertension, [...] musculature are within normal limits. The adrenal glands,kidneys, pancreas, stomach, and duodenum are within normal [...] with findings of portal hypertension. Signed: Parish Schmidtort Verified Date/Time: 05/09/2018 12:37:20 Reading Location: [address] Body Reading Room ANTI-NUCLEAR ANTIBODY (MATHEUS)2018-04-30 05:48:00 Test Item Value Reference Range Comments ANTI-NUCLEAR ANTIBODY (MATHEUS) (BEAKER) (test Negative Negative yhcu=507) Test performed by IFA method.Test performed by IFA method.HEPATITIS B SURFACE [id number] 16:38:00 Test Item Value Reference Range Comments HEPATITIS B SURFACE ANTIBODY (BEAKER) (test < mIU/mL <8.0 dgow=898) HEPATITIS B CORE ANTIBODY, [id number] 16:13:00 Test Item Value Reference Range Comments HEPATITIS B CORE TOTAL ANTIBODY (BEAKER) (test Nonreactive Nonreactive kbun=637) HEPATITIS A ANTIBODY, [id number] 16:13:00 Test Item Value Reference Range Comments HEPATITIS A IGG ANTIBODY (BEAKER) (test Nonreactive Nonreactive sulw=8767) VITAMIN D, [id number] 16:11:00 Test Item Value Reference Range Comments VITAMIN D 25-OH (BEAKER) (test tzqf=0380) 17.0 ng/mL 6.6-49.9 Effective 06/09/2017: Reference Range ChangeNew: 6.6-49.9 ng/mL Previous: 13.0 -47.8 ng/mLRecommended Vitamin D Target Range: 30.0-40.0 ng/mLVITAMIN B12 AND [id number] 16:11:00 Test Item Value Reference Range Comments VITAMIN B12 (BEAKER) (test ipnw=050) 350 pg/mL 213-816 FOLATE (BEAKER) (test lpgb=624) 14.6 ng/mL >=7.0 IRON, TIBC, % SAT. (WITHOUT FERRITIN)2018-04-27 15:34:00 Test Item Value Reference Range Comments IRON (BEAKER) (test zwuy=750) 186 ug/dL 40-160 TOTAL IRON BINDING CAPACITY (BEAKER) (test 228 ug/dL 250-450 izwu=204) IRON % SATURATION (2) (BEAKER) (test yixn=9394) 82 % 20-55 HEPATITIS B SURFACE [id number] 14:52:00 Test Item Value Reference Range Comments HEPATITIS B SURFACE ANTIGEN (2) (BEAKER) (test Nonreactive Nonreactive lahr=0537) HEPATITIS C [id number] 14:52:00 Test Item Value Reference Range Comments HEPATITIS C ANTIBODY (BEAKER) (test tsur=026) Nonreactive Nonreactive [id number] 14:44:00 Test Item Value Reference Range Comments FERRITIN (BEAKER) (test hdjk=301) 205 ng/mL 5-275 ALPHA FETOPROTEIN (AFP), TUMOR [id number] 14:44:00 Test Item Value Reference Range Comments ALPHA-FETOPROTEIN (BEAKER) (test adgo=1604) 7.5 ng/mL <10.0 COMPREHENSIVE METABOLIC [id number] 14:22:00 Test Item Value Reference Range Comments TOTAL PROTEIN (BEAKER) 7.9 gm/dL 6.0-8.3 (test iods=717) ALBUMIN (BEAKER) (test 3.3 g/dL 3.5-5.0 rklw=9187) ALKALINE PHOSPHATASE 104 U/L 40-150 (BEAKER) (test csms=823) BILIRUBIN TOTAL (BEAKER) 2.0 mg/dL 0.2-1.2 (test oluz=623) SODIUM (BEAKER) (test 140 meq/L 136-145 nixj=811) POTASSIUM (BEAKER) (test 3.3 meq/L 3.5-5.1 ksbi=778) CHLORIDE (BEAKER) (test 106 meq/L 98-107 suug=847) CO2 (BEAKER) (test 27 meq/L 22-29 htfr=384) BLOOD UREA NITROGEN 5 mg/dL 7-21 (BEAKER) (test ailt=431) CREATININE (BEAKER) (test 0.76 mg/dL 0.57-1.25 aqqh=506) GLUCOSE RANDOM (BEAKER) 108 mg/dL 70-105 (test yywd=700) CALCIUM (BEAKER) (test 9.3 mg/dL 8.4-10.2 lglm=806) AST (SGOT) (BEAKER) (test 30 U/L 5-34 nrqc=014) ALT (SGPT) (BEAKER) (test 15 U/L 6-55 xrwf=025) EGFR (BEAKER) (test 113 mL/min/1.73 sq ESTIMATED GFR IS NOT kmna=1367) m ACCURATE CREATININE CLEARANCE IN PREDICTING GLOMERULAR FILTRATION RATE. ESTIMATED GFR IS NOT APPLICABLE FOR DIALYSIS PATIENTS. BILIRUBIN, [id number] 14:22:00 Test Item Value Reference Range Comments BILIRUBIN DIRECT (BEAKER) (test jyaw=627) 0.7 mg/dL 0.1-0.5 [id number] 14:14:00 Test Item Value Reference Range Comments ALPHA-1 ANTITRYPSIN (BEAKER) (test npnt=177) 141.30 mg/dL 90.00-200.00 PROTHROMBIN [id number] 14:00:00 Test Item Value Reference Range Comments PROTIME (BEAKER) (test sgvj=970) 15.9 seconds 11.7-14.7 INR (BEAKER) (test wqwo=307) 1.3 <=5.9 RECOMMENDED COUMADIN/WARFARIN INR THERAPY RANGESSTANDARD DOSE: 2.0 - 3.0 Includes: PROPHYLAXIS forvenous thrombosis, systemic embolization; TREATMENT for venous thrombosis and/or pulmonary embolus.HIGH RISK: Target INR is 2.5-3.5 for patients with mechanical heart valves.CBC W/PLT COUNT & AUTO [id number] 13:54:00 Test Item Value Reference Range Comments WHITE BLOOD CELL COUNT (BEAKER) (test oihu=826) 4.5 K/ L 3.5-10.5 RED BLOOD CELL COUNT (BEAKER) (test fytm=038) 4.13 M/ L 4.63-6.08 HEMOGLOBIN (BEAKER) (test cuat=030) 14.1 GM/DL 13.7-17.5 HEMATOCRIT (BEAKER) (test jscp=593) 40.1 % 40.1-51.0 MEAN CORPUSCULAR VOLUME (BEAKER) (test kuyk=481) 97.1 fL 79.0-92.2 MEAN CORPUSCULAR HEMOGLOBIN (BEAKER) (test 34.1 pg 25.7-32.2 zplk=519) MEAN CORPUSCULAR HEMOGLOBIN CONC (BEAKER) (test 35.2 GM/DL 32.3-36.5 flvn=989) RED CELL DISTRIBUTION WIDTH (BEAKER) (test 13.0 % 11.6-14.4 pneo=971) PLATELET COUNT (BEAKER) (test frny=560) 127 K/CU MM 150-450 MEAN PLATELET VOLUME (BEAKER) (test yfzp=991) 9.6 fL 9.4-12.4 NUCLEATED RED BLOOD CELLS (BEAKER) (test 0 /100 WBC 0-0 veay=209) NEUTROPHILS RELATIVE PERCENT (BEAKER) (test 49 % qcdz=700) LYMPHOCYTES RELATIVE PERCENT (BEAKER) (test 35 % pzza=008) MONOCYTES RELATIVE PERCENT (BEAKER) (test 8 % avwd=911) EOSINOPHILS RELATIVE PERCENT (BEAKER) (test 6 % eqzf=090) BASOPHILS RELATIVE PERCENT (BEAKER) (test 2 % llih=175) NEUTROPHILS ABSOLUTE COUNT (BEAKER) (test 2.20 K/ L 1.78-5.38 dywg=496) LYMPHOCYTES ABSOLUTE COUNT (BEAKER) (test 1.57 K/ L 1.32-3.57 dqui=104) MONOCYTES ABSOLUTE COUNT (BEAKER) (test 0.38 K/ L 0.30-0.82 tezb=754) EOSINOPHILS ABSOLUTE COUNT (BEAKER) (test 0.27 K/ L 0.04-0.54 cuvt=339) BASOPHILS ABSOLUTE COUNT (BEAKER) (test 0.07 K/ L 0.01-0.08 reow=245) IMMATURE GRANULOCYTES-RELATIVE PERCENT (BEAKER) 0 % 0-1 (test eqok=8714)
[2018-11-23 10:34] LABS: Absolute Lymphocytes (CBC) 1.7 K/uL (0.7-4.9); Absolute Monocytes 0.8 K/uL (0.1-1.3); Absolute Neutrophil 7.6 K/uL (1.8-8.0); Basophils % 0.5 % (0-1.3); Eosinophils % 0.9 % (0-4.4); Hematocrit 43.5 % (39.6-49.0); Lymphocytes % 16.6 % (15.3-44.8); MPV 7.2 fL (7.6-11.3); Monocytes % 7.5 % (3.3-12.3); Protime INR 1.19; RBC Red Blood Cell Count 4.52 M/uL (4.33-5.43)
--- NOTE | 2018-11-23 10:41 | RAD REPORT ---
EXAM DESCRIPTION: Melat Pa And Lat (2 Views)11/23/2018 10:30 am CLINICAL HISTORY: Cough COMPARISON: None FINDINGS: Right hilum is mildly prominent. Otherwise lungs are clear. The heart is normal size IMPRESSION: Mild prominence of the right hilum probably representing normal confluence of pulmonary vessels. As lymphadenopathy can have this appearance it is recommended that the patient have followup PA and lateral chest series in 2 months for further evaluation
[2018-11-23 11:02] LABS: ALT/SGPT 41 U/L (12-78); AST/SGOT 24 U/L (15-37); Albumin 3.1 g/dL (3.4-5.0); Alkaline Phosphatase 200 U/L (45-117); BUN Blood Urea Nitrogen 12 mg/dL (7-18); Bicarbonate 27 mmol/L (21-32); Bilirubin Direct 0.3 mg/dL (0-0.2); Bilirubin Total 1.3 mg/dL (0.2-1.0); Glucose Level 156 mg/dL (74-106); NT PRO-BNP 6 pg/mL (<125); Potassium 3.8 mmol/L (3.5-5.1); Protein, Total 7.6 g/dL (6.4-8.2); Sodium Level 141 mmol/L (136-145); Troponin (Emerg Dept Use Only) < 0.02 ng/mL (0.0-0.045)
[2018-11-23] MEDS ORDERED: ONDANSETRON 4 MG/2 ML VIAL ONE (11:05)
[2018-11-23] MEDS ORDERED: FAMOTIDINE 20 MG/2 ML VIAL IV ONE (11:06)
--- NOTE | 2018-11-23 11:36 | EKG ---
Test Date: 2018-11-23 Test Time: 10:03:22 Ropeman: CARISSA MEASUREMENT RESULTS: Intervals: Rate: 86 MT: 138 QRSD: 92 QT: 370 QTc: 442 [place]: P: 68 MT: 138 QRS: 53 T: 48 INTERPRETIVE STATEMENTS: Normal sinus rhythm Normal ECG Compared to ECG 06/29/2010 10:22:33 Sinus tachycardia no longer present Electronically Signed On 11-23-18 11:36:00 CDT by Agusto Franco
--- NOTE | 2018-11-23 11:47 | RAD REPORT ---
EXAM DESCRIPTION: CT - Chest Abdomen Pelvis W Cont - 11/23/2018 11:28 am CLINICAL HISTORY: Chest and abdominal pain COMPARISON: Chest x-ray November 23, 2018 TECHNIQUE: Computed axial tomography of the chest, abdomen and pelvis was obtained. 100 cc Isovue-30 0 was administered intravenously. Oral contrast was not requested. This limits evaluation of bowel. All CT scans are performed using dose optimization technique as appropriate and may include automated exposure control or mA/KV adjustment according to patient size. FINDINGS: Mild prominence of the right hilum represents confluence of pulmonary vessels. The lungs are clear. No mediastinal or hilar lymphadenopathy A pericardial effusion is not seen. No pleural effusion. A cirrhotic liver. The portal vein is patent. The spleen measures 14 centimeters. Abdominal varices noted. Pancreas and adrenals are unremarkable. Small bilateral nonobstructing renal calculi Diverticula stem from the colon without visualization of diverticulitis. IMPRESSION: Unremarkable CT chest Cirrhosis Small nonobstructing renal calculi
--- NOTE | 2018-11-23 12:01 | ER ---
Nurse's Notes [facility] Name: Viraj Barcenas II Age: 43 yrs Sex: Male : 1975 Arrival Date: 11/23/2018 Time: 09:39 Bed 7 Private MD: Diagnosis: Acute abdominal pain;Acute chest pain Presentation: 11/23 09:53 Presenting complaint: Patient states: Nausea and vomiting that began 2-3 days ago. Pt ss reports he had a ultrasound of his gallbladder that showed that he had gallstones. Transition of care: patient was not received from another setting of care. Onset of symptoms was November 20, 2015. Risk Assessment: Do you want to hurt yourself or someone else? Patient reports no desire to harm self or others. Initial Sepsis Screen: Does the patient meet any 2 criteria? No. Patient's initial sepsis screen is negative. Does the patient have a suspected source of infection? No. Patient's initial sepsis screen is negative. Care prior to arrival: None. 09:53 Method Of Arrival: Ambulatory ss 09:53 Acuity: BRIANA 3 ss Historical: - Allergies: 09:55 No Known Allergies; ss - Home Meds: 09:55 None [Active]; ss - PMHx: 09:55 Cirrhosis; ss - PSHx: 09:55 elbow; ss - Immunization history:: Adult Immunizations up to date. - Social history:: Smoking status: Patient/guardian denies using tobacco. - Ebola Screening: : Patient denies exposure to infectious person Patient denies travel to an Ebola-affected area in the 21 days before illness onset. - Family history:: not pertinent. - Hospitalizations: : No recent hospitalization is reported. Screenin:26 Abuse screen: Denies threats or abuse. Denies injuries from another. Nutritional ph screening: No deficits noted. Tuberculosis screening: No symptoms or risk factors identified. Fall Risk None identified. Assessment: 10:00 General: Appears in no apparent distress. comfortable, well groomed, Behavior is calm, ph cooperative, appropriate for age, Reports chills for fever for 2-3 days. Pain: Complains of pain in epigastric area Pain radiates to xyphoid area and mid-sternal area Quality of pain is described as pressure, Pain began 2-3 days ago. Is intermittent. Neuro: Level of Consciousness is awake, alert, obeys commands, Oriented to person, place, time, situation. Cardiovascular: Reports chest pain, lightheadedness, nausea, shortness of breath, vomiting, Capillary refill < 3 seconds in bilateral fingers Patient's skin is warm and dry. Respiratory: Airway is patent Respiratory effort is even, unlabored, Respiratory pattern is regular, symmetrical. GI: Abdomen is round non-distended, Bowel sounds present X 4 quads. Abd is soft X 4 quads Abdomen is tender to palpation in right upper quadrant and left upper quadrant. Derm: Skin is intact, is healthy with good turgor, Skin is pink, warm \T\ dry. Musculoskeletal: Circulation, motion, and sensation intact. Range of motion: intact in all extremities. 11:00 Reassessment: Patient appears in no apparent distress at this time. Patient and/or ph family updated on plan of care and expected duration. Pain level reassessed. Patient is alert, oriented x 3, equal unlabored respirations, skin warm/dry/pink. Pt report that pain and nausea have improved, VSS, awaiting lab and radiology results. 12:29 Reassessment: Patient appears in no apparent distress at this time. Patient and/or ph family updated on plan of care and expected duration. Pain level reassessed. Patient is alert, oriented x 3, equal unlabored respirations, skin warm/dry/pink. Pt instructed to follow up w/ cardiology and GI, d/c home w/ SO Patient states feeling better. Patient states symptoms have improved. Vital Signs: 09:55 BP 139 / 85; Pulse 77; Resp 16; Temp 98.9(TE); Pulse Ox 99% on R/A; Weight 84.37 kg; ss Height 5 ft. 9 in. (175.26 cm); Pain 5/10; 11:15 BP 136 / 78; Pulse 74; Resp 16; Pulse Ox 99% on R/A; ph 12:30 BP 127 / 80; Pulse 71; Resp 18; Temp 98.1; Pulse Ox 99% on R/A; Pain 2/10; ph 09:55 Body Mass Index 27.47 (84.37 kg, 175.26 cm) ED Course: 09:39 Patient arrived in ED. tw3 09:51 Tanya Russell RN is Primary Nurse. ph 09:51 Brady Foster MD is Attending Physician. wa 09:55 Triage completed. ss 09:55 Arm band placed on right wrist. ss 10:08 EKG done, by electronics engineering technician. reviewed by Brady Foster MD. at1 10:21 Initial lab(s) drawn, by me, sent to lab. Inserted saline lock: 20 gauge in left dh3 antecubital area, using aseptic technique. Blood collected. 10:24 Patient moved to radiology via wheelchair. 1 10:27 X-ray completed. Patient tolerated procedure well. 1 10:28 Chest Pa And Lat (2 Views) XRAY In Process Unspecified. EDMS 10:28 Patient moved back from radiology. 1 11:28 CT Chest, Abdomen, Pelvis - W/Contrast In Process Unspecified. EDMS 11:30 Patient has correct armband on for positive identification. Bed in low position. Call ph light in reach. Side rails up X 1. laundry press operator on. Pulse ox on. NIBP on. Door closed. Noise minimized. Warm blanket given. 11:30 No provider procedures requiring assistance completed. Patient maintains SpO2 ph saturation greater than 95% on room air. 11:59 Brady Vale MD is Referral Physician. wa 12:00 Agusto Franco MD is Referral Physician. wa 12:31 IV discontinued, intact, bleeding controlled, No redness/swelling at site. Pressure ph dressing applied. Administered Medications: 11:05 Drug: Zofran 4 mg Route: IVP; Site: left antecubital; pc1 11:30 Follow up: Response: No adverse reaction; Nausea is decreased ph 11:05 Drug: Pepcid 20 mg Route: IVP; Site: left antecubital; pc1 11:30 Follow up: Response: No adverse reaction; Pain is decreased ph Outcome: 12:00 Discharge ordered by . wa 12:31 Discharged to home ambulatory, with significant other. ph 12:31 Condition: good 12:31 Discharge instructions given to patient, Instructed on discharge instructions, follow up and referral plans. medication usage, Demonstrated understanding of instructions, follow-up care, medications, Prescriptions given X 2. 12:31 Patient left the ED. ph Signatures: Dispatcher [employer] EDMS Deb Kitchen mh1 Renu Garcia RN RN ss Kailey Beltran, marshmallow machine operator EKG Tat1 Tanya Russell RN RN ph Burt, Tia tw3 Rubina Del Rio dh3 Brady Foster MD MD wa Cantu, Patrick [facility]
--- NOTE | 2018-11-23 12:01 | EDPHYS ---
Physician Documentation [facility] Name: Viraj Barcenas II Age: 43 yrs Sex: Male : 1975 Arrival Date: 11/23/2018 Time: 09:39 Bed 7 Private MD: ED Physician Brady Foster HPI: 11/23 10:58 This 43 yrs old Male presents to ER via Ambulatory with complaints of wa Abdominal Pain. 10:58 The patient or guardian reports chest pain that is located primarily in the substernal wa area, epigastric area. Onset: 3 day(s) ago, states had several episodes of vomiting 3 days ago. non-bloody. food sediment. also diarrhea 2 days ago, all resolved. now 2 days of chest pressure. denies SOB or radiation of pain. h/o cirrhosis. . The pain does not radiate. Associated signs and symptoms: Pertinent positives: abdominal pain, Pertinent negatives: shortness of breath, syncope. The chest pain is described as a pressure. Duration: The patient or guardian reports a single episode, that is still ongoing, and unchanged. Modifying factors: The symptoms are alleviated by nothing. the symptoms are aggravated by nothing. Severity of pain: At its worst the pain was moderate in the emergency department the pain is unchanged. The patient has experienced a previous episode. The patient has not recently seen a physician. Historical: - Allergies: 09:55 No Known Allergies; ss - Home Meds: 09:55 None [Active]; ss - PMHx: 09:55 Cirrhosis; ss - PSHx: 09:55 elbow; ss - Immunization history:: Adult Immunizations up to date. - Social history:: Smoking status: Patient/guardian denies using tobacco. - Ebola Screening: : Patient denies exposure to infectious person Patient denies travel to an Ebola-affected area in the 21 days before illness onset. - Family history:: not pertinent. - Hospitalizations: : No recent hospitalization is reported. ROS: 11:07 Constitutional: Negative for fever, chills, and weight loss, Eyes: Negative for injury, wa pain, redness, and discharge, ENT: Negative for injury, pain, and discharge, Neck: Negative for injury, pain, and swelling, Respiratory: Negative for shortness of breath, cough, wheezing, and pleuritic chest pain, Back: Negative for injury and pain, : Negative for injury, bleeding, discharge, and swelling, MS/Extremity: Negative for injury and deformity, Skin: Negative for injury, rash, and discoloration, Neuro: Negative for headache, weakness, numbness, tingling, and seizure, Psych: Negative for depression, anxiety, suicide ideation, homicidal ideation, and hallucinations. 11:07 Cardiovascular: Positive for chest pain, Negative for edema, orthopnea, palpitations, paroxysmal nocturnal dyspnea. 11:07 Abdomen/GI: Positive for abdominal pain, of the epigastric area. 11:07 All other systems are negative. Exam: 11:08 Constitutional: This is a well developed, well nourished patient who is awake, alert, wa and in no acute distress. Head/Face: Normocephalic, atraumatic. Eyes: Pupils equal round and reactive to light, extra-ocular motions intact. Lids and lashes normal. Conjunctiva and sclera are non-icteric and not injected. Cornea within normal limits. Periorbital areas with no swelling, redness, or edema. ENT: Nares patent. No nasal discharge, no septal abnormalities noted. Tympanic membranes are normal and external auditory canals are clear. Oropharynx with no redness, swelling, or masses, exudates, or evidence of obstruction, uvula midline. Mucous membranes moist. Neck: Trachea midline, no thyromegaly or masses palpated, and no cervical lymphadenopathy. Supple, full range of motion without nuchal rigidity, or vertebral point tenderness. No Meningismus. Chest/axilla: Normal chest wall appearance and motion. Nontender with no deformity. No lesions are appreciated. Back: No spinal tenderness. No costovertebral tenderness. Full range of motion. Skin: Warm, dry with normal turgor. Normal color with no rashes, no lesions, and no evidence of cellulitis. MS/ Extremity: Pulses equal, no cyanosis. Neurovascular intact. Full, normal range of motion. Neuro: Awake and alert, GCS 15, oriented to person, place, time, and situation. Cranial nerves II-XII grossly intact. Motor strength 5/5 in all extremities. Sensory grossly intact. Cerebellar exam normal. Normal gait. Psych: Awake, alert, with orientation to person, place and time. Behavior, mood, and affect are within normal limits. 11:08 Cardiovascular: Rate: normal, Rhythm: regular, Pulses: no pulse deficits are appreciated, Heart sounds: normal, Edema: is not appreciated, JVD: is not appreciated. 11:08 Abdomen/GI: Inspection: abdomen appears normal, Bowel sounds: normal, Palpation: mild abdominal tenderness, in the epigastric area, no appreciated organomegaly. Vital Signs: 09:55 BP 139 / 85; Pulse 77; Resp 16; Temp 98.9(TE); Pulse Ox 99% on R/A; Weight 84.37 kg; ss Height 5 ft. 9 in. (175.26 cm); Pain 5/10; 11:15 BP 136 / 78; Pulse 74; Resp 16; Pulse Ox 99% on R/A; ph 12:30 BP 127 / 80; Pulse 71; Resp 18; Temp 98.1; Pulse Ox 99% on R/A; Pain 2/10; ph 09:55 Body Mass Index 27.47 (84.37 kg, 175.26 cm) ss MDM: 09:51 Patient medically screened. wa 11:08 Differential diagnosis: eval to r/o cardiopulm path as well as GI related path. Will wa reassess. 11:51 Data reviewed: vital signs, nurses notes, lab test result(s), EKG, radiologic studies. wa Test interpretation: by ED physician or midlevel provider:. 11:53 Test interpretation: by ED physician or midlevel provider: labs noted for elevated alk wa phos. CXR wnl. CT chest/abd/pelvis: cirrhosis of liver. 14 cm spleen. abd varices. no acute abnormality in the chest. 11:56 Special discussion: chest pressure after episodes of vomiting. assoc with burping x 2-3 wa days. normal KEG. normal cardiac enzymes. low risk HEART score. suspect GI etiology most likely. will give pepcid and have f/u with GI. will give f/u with cardiology as well. CT chest did not depict any esophageal abnormality. 11/23 10:05 Order name: Basic Metabolic Panel; Complete Time: 11:11/23 10:05 Order name: CBC with Diff; Complete Time: 10:11/23 10:05 Order name: LFT's; Complete Time: :11/23 10:05 Order name: NT PRO-BNP; Complete Time: 11:11/23 10:05 Order name: PT-INR; Complete Time: 10:55 11/23 10:05 Order name: Troponin (emerg Dept Use Only); Complete Time: 11:11/23 10:05 Order name: EKG; Complete Time: 10:11/23 10:05 Order name: Cardiac monitoring; Complete Time: 10:11/23 10:05 Order name: EKG - Nurse/Tech; Complete Time: 10:11/23 10:05 Order name: IV Saline Lock; Complete Time: 10:11/23 10:05 Order name: Chest Pa And Lat (2 Views) XRAY; Complete Time: 10:54 11/23 10:56 Order name: CT Chest, Abdomen, Pelvis - W/Contrast; Complete Time: 11:11/23 10:05 Order name: Labs collected and sent; Complete Time: :11/23 10:05 Order name: O2 Per Protocol; Complete Time: :11/23 10:05 Order name: O2 Sat Monitoring; Complete Time: 10: ut Administered Medications: 11:05 Drug: Zofran 4 mg Route: IVP; Site: left antecubital; pc1 11:30 Follow up: Response: No adverse reaction; Nausea is decreased ph 11:05 Drug: Pepcid 20 mg Route: IVP; Site: left antecubital; pc1 11:30 Follow up: Response: No adverse reaction; Pain is decreased ph Disposition: 11/23/18 12:00 Discharged to Home. Impression: Acute abdominal pain, Acute chest pain. - Condition is Stable. - Prescriptions for Zofran 4 mg Oral Tablet - take 1 tablet by ORAL route every 12 hours As needed; 20 tablet. Pepcid 20 mg Oral Tablet - take 1 tablet by ORAL route 2 times per day for 5 days; 10 tablet. - Medication Reconciliation Form, Thank You Letter, Antibiotic Education, Prescription Opioid Use form. - Follow up: Brady Vale MD; When: 2 - 3 days; Reason: Recheck today's complaints. Follow up: Agusto Franco MD; When: 2 - 3 days; Reason: Recheck today's complaints. - Problem is new. - Symptoms have improved. - Notes: follow up with the abdominal doctor as discussed. you may need a scope. also see the survey technologist for further check up of your heart. return here immediately for any rapidly worsening concerns Signatures: Dispatcher [employer] EDRenu Aguilar RN RN Tanya Russell RN RN CristianBrady MD MD wa Cantu, Patrick [facility] Corrections: (The following items were deleted from the chart) 12:31 12:00 11/23/2018 12:00 Discharged to Home. Impression: Acute abdominal pain; Acute ph chest pain. Condition is Stable. Forms are Medication Reconciliation Form, Thank You Letter, Antibiotic Education, Prescription Opioid Use. Follow up: Brady Vale; When: 2 - 3 days; Reason: Recheck today's complaints. Follow up: Agusto Franco; When: 2 - 3 days; Reason: Recheck today's complaints. Problem is new. Symptoms have improved. jaylan
[2018-11-23 12:48] VITALS: O2SAT 99
[2018-11-23 12:50] VITALS: BP 127/80; TEMP 98.1
== END 2018-11-23 12:31 | disposition home or self-care (01) ==
LOC: ER 09:35
DX: R07.9 Chest pain, unspecified (principal)
CPT/HCPCS: 36415; 71046; 71260; 74177; 80048; 80076; 83880; 84484; 85025; 85610; 93005; 96374; 96375; 99285; J2405; Q9967